=== PATIENT | female | born 1955 | race Caucasian/White ===

== ENCOUNTER 2016-07-12 11:06 | Emergency (ER) | payer MEDICAID, OTHER ==
[~2016-07-12] VITALS: Ht 162.6 cm; Wt 77.0 kg
[~2016-07-12 11:06] MED LIST: ASPI81TA3 PO; BENA40TA41 PO; GLIM2TAB PO; HYD25 PO; METF1000 PO; SMV40T PO
[2016-07-12 11:21] VITALS: Ht 162.6 cm; Wt 77.0 kg
[2016-07-12] MEDS ORDERED: IBUP-1542 PO (13:48)
[2016-07-12] MEDS ORDERED: OSLT75C PO (13:48)
[2016-07-12] MEDS ORDERED: BENZ100C70 PO (13:48)
[2016-07-12] MEDS ORDERED: IBUP400T22 PO (13:48)
--- NOTE | 2016-07-12 13:59 | ERD ---
ER Documentation Chief Complaint Date/Time DATE: 07/12/16 TIME: 13:56 Chief Complaint NAUSEA,HEADACHE,SORE THROAT HPI 60-year-old female with a past medical history of diabetes, hypertension, hyperlipidemia presents to the ED complaining of headache, sore throat, productive cough that started 3 days ago. Reports that she has been taking Tylenol without relief of her symptoms. Denies any sick contacts. Denies any chest pain, shortness of breath, wheezing, dysphagia, abdominal pain, nausea, vomiting, diarrhea. ROS All systems reviewed and are negative except as per history of present illness. Medications Home Meds Active Scripts Ibuprofen* (Motrin*) 400 Mg Tab, 400 MG PO Q6, #30 TAB take with food Prov:MARIAELENA JUNIOR PA-C 07/12/16 Benzonatate* (Tessalon Perle*) 100 Mg Capsule, 100 MG PO Q8H Y for COUGH, #20 CAP Prov:MARIAELENA JUNIOR PA-C 07/12/16 Oseltamivir Phosphate* (Tamiflu*) 75 Mg Capsule, 75 MG PO BID for 5 Days, CAP Prov:MARIAELENA JUNIOR PA-C 07/12/16 Reported Medications Aspirin* (Aspirin* Chew) 81 Mg Tab.chew, 81 MG PO DAILY, TAB.CHEW 03/02/14 Benazepril Hcl* (Benazepril Hcl*) 40 Mg Tablet, 40 MG PO DAILY, TAB 03/02/14 Glimepiride* (Glimepiride*) 2 Mg Tablet, 2 MG PO DAILY 01/16/13 Hydrochlorothiazide* (Hydrochlorothiazide*) 25 Mg Tab, 25 MG PO DAILY 01/16/13 Simvastatin (Simvastatin) 40 Mg Tablet, 40 MG PO QHS 01/16/13 Metformin Hcl* (Metformin Hcl*) 1,000 Mg Tablet, 1000 MG PO BID 01/16/13 Allergies Allergies: Coded Allergies: No Known Allergy (Unverified , 07/12/16) PMhx/Soc History of Surgery: Yes (C- SECTION) Anesthesia Reaction: No Hx Neurological Disorder: No Hx Respiratory Disorders: No Hx Psychiatric Problems: No Hx Miscellaneous Medical Probl: No Hx Alcohol Use: No Hx Substance Use: No Hx Tobacco Use: No Smoking Status: Never smoker Physical Exam Vitals Vital Signs Date Time Temp Pulse Resp B/P Pulse Ox O2 Delivery O2 Flow Rate FiO2 3/23/17 11:21 97.2 96 18 120/58 98 Physical Exam Const: [id number], well-nourished. In no acute distress. Head: Atraumatic, normocephalic Eyes: Normal Conjunctiva without injection. No purulent discharge. PERRL. EOMI ENT: Normal external ear. Ear canal without erythema. Tympanic membrane pearly raymundo without effusion or bulging. Nasal canal clear with normal turbinates. Moist oropharynx without tonsillar exudates. Non-erythematous pharynx. Uvula midline. No drooling. No trismus. Neck: Full range of motion. No meningismus. No cervical lymphadenopathy. Resp: Clear to auscultation bilaterally. No wheezing, rhonchi, rales, or crackles. No accessory muscle use. No retractions. Cardio: Regular rate and rhythm. No murmurs, rubs or gallops. Abd: Soft, non tender, non distended. Normal bowel sounds. No palpable masses. No rebound tenderness. No guarding. Skin: No petechiae or rashes Back: No midline tenderness. No CVA tenderness. Ext: No cyanosis, or edema. Neur: Awake and alert. Psych: Normal Mood and Affect Procedures/MDM This is a 60-year-old female with no significant past medical history presents to the ED complaining of sore throat, productive cough, fever. Patient is afebrile and nontoxic-appearing. Patient has normal vital signs. Patient symptoms are likely due to viral etiology. Since patient is a high risk patient , patient could benefit from a course of Tamiflu. Patient's physical exam include lungs which were clear to auscultation and a normal pulse oximetry. There is a low suspicion for pneumonia, pneumothorax, pulmonary embolism, epiglottitis, otitis media, otitis externa, viral/strep pharyngitis, sinusitis, peritonsillar abscess, mastoiditis, retropharyngeal abscess, meningitis, sepsis , acute abdomen or other emergent conditions. Fluids, rest, and symptomatic treatment are recommended for the management of patient's symptoms. Discharge medications: Tessalon Perles, Tamiflu, Ibuprofen Patient was instructed to return to the ED for any new or worsening symptoms. They should otherwise follow up with the primary care provider within 1-2 days. The patient's questions were answered at the time of discharge. Patient understood and agreed with discharge management. Departure Diagnosis: Primary Impression: Flu-like symptoms Condition: Stable Patient Instructions: Influenza (Adult) Referrals: [facility] YOU HAVE RECEIVED A MEDICAL SCREENING EXAM AND THE RESULTS INDICATE THAT YOU DO NOT HAVE A CONDITION THAT REQUIRES URGENT TREATMENT IN THE EMERGENCY DEPARTMENT. FURTHER EVALUATION AND TREATMENT OF YOUR CONDITION CAN WAIT UNTIL YOU ARE SEEN IN YOUR DOCTORS OFFICE WITHIN THE NEXT 1-2 DAYS. IT IS YOUR RESPONSIBILITY TO MAKE AN APPOINTMENT FOR FOLOW-UP CARE. IF YOU HAVE A PRIMARY DOCTOR --you should call your primary doctor and schedule an appointment IF YOU DO NOT HAVE A PRIMARY DOCTOR YOU CAN CALL OUR PHYSICIAN REFERRAL HOTLINE AT IF YOU CAN NOT AFFORD TO SEE A PHYSICIAN YOU CAN CHOSE FROM THE FOLLOWING [facility] [address] [facility]. [facility] [address] [facility] [address] [facility] [address] [facility]. [facility] [address] [facility]. [facility] [address] [facility]. [facility] YOU HAVE RECEIVED A MEDICAL SCREENING EXAM AND THE RESULTS INDICATE THAT YOU DO NOT HAVE A CONDITION THAT REQUIRES URGENT TREATMENT IN THE EMERGENCY DEPARTMENT. FURTHER EVALUATION AND TREATMENT OF YOUR CONDITION CAN WAIT UNTIL YOU ARE SEEN IN YOUR DOCTORS OFFICE WITHIN THE NEXT 1-2 DAYS. IT IS YOUR RESPONSIBILITY TO MAKE AN APPOINTMENT FOR FOLOW-UP CARE. IF YOU HAVE A PRIMARY DOCTOR --you should call your primary doctor and schedule and appointment IF YOU DO NOT HAVE A PRIMARY DOCTOR YOU CAN CALL OUR PHYSICIAN REFERRAL HOTLINE AT . IF YOU CAN NOT AFFORD TO SEE A PHYSICIAN YOU CAN CHOSE FROM THE FOLLOWING [facility] INSTITUTIONS: [facility] [address] [place] [address] [facility] [address] [place] [address] [facility] + [facility] [address] [place] [address] [facility] URGENT CARE/SPECIALTIES Additional Instructions: Llame al doctor MAANA y kathe sue MARIA G PARA DENTRO DE 1-2 CONNOR.Dgale a la secretaria que nosotros le instruimos hacer esta maria g.Avise o llame si lewis condicin se empeora antes de la maria g. Regresa aqui si peor o no mejor. MARIAELENA JUNIOR PA-C Jul 12, 2016 13:59
== END 2016-07-12 14:40 | disposition home or self-care (01) ==
LOC: FTE 11:06
DX: R51 Headache (principal); J02.9 Acute pharyngitis, unspecified; R05 Cough; R11.0 Nausea; I10 Essential (primary) hypertension; E11.9 Type 2 diabetes mellitus without complications; Z79.82 Long term (current) use of aspirin; Z79.84 Long term (current) use of oral hypoglycemic drugs
CPT/HCPCS: 99284

== ENCOUNTER 2016-09-10 05:25 | Emergency (ER) | payer OTHER ==
[~2016-09-10] VITALS: Ht 165.1 cm; Wt 75.0 kg
[~2016-09-10 05:25] MED LIST changes: +BENZ100C70 PO; +IBUP400T22 PO; +OSLT75C PO
[2016-09-10 05:28] VITALS: Ht 165.1 cm; Wt 75.0 kg
[2016-09-10] MEDS ORDERED: LIDOCAINE 1% (MDV) 20 ML INJ INJ STA (06:20)
[2016-09-10] MEDS ORDERED: CEPH-443 PO (06:27)
[2016-09-10] MEDS ORDERED: SULF1TAB31 PO (06:27)
[2016-09-10] MEDS ORDERED: IBUP-1542 PO (06:27)
--- NOTE | 2016-09-10 07:13 | ERD ---
ER Documentation Chief Complaint Date/Time DATE: 09/10/16 TIME: 07:11 Chief Complaint Abscess in the right leg x4 days HPI 60-year-old female with history of type 2 diabetes comes to the emergency department with an abscess on her right upper leg for the past 4 days. Patient states that it is achy, pain is worse with movement and is localized. She has no other infections. She denies any fevers or chills or trauma. ROS All systems reviewed and are negative except as per history of present illness. Medications Home Meds Active Scripts Ibuprofen* (Motrin*) 600 Mg Tab, 600 MG PO Q6, #30 TAB Prov:ZAKIA HUNTER PA-C 09/10/16 Sulfamethoxazole/Trimethoprim* (Bactrim Ds* Tablet) 1 Each Tablet, 1 TAB PO BID , #14 TAB Prov:ZAKIA HUNTER PA-C 09/10/16 Cephalexin* (Keflex*) 500 Mg Capsule, 500 MG PO QID for 7 Days, CAP Prov:ZAKIA HUNTER PA-C 09/10/16 Ibuprofen* (Motrin*) 400 Mg Tab, 400 MG PO Q6, #30 TAB take with food Prov:MARIAELENA JUNIOR PA-C 07/12/16 Benzonatate* (Tessalon Perle*) 100 Mg Capsule, 100 MG PO Q8H Y for COUGH, #20 CAP Prov:MARIAELENA JUNIOR PA-C 07/12/16 Oseltamivir Phosphate* (Tamiflu*) 75 Mg Capsule, 75 MG PO BID for 5 Days, CAP Prov:MARIAELENA JUNIOR PA-C 07/12/16 Reported Medications Aspirin* (Aspirin* Chew) 81 Mg Tab.chew, 81 MG PO DAILY, TAB.CHEW 03/02/14 Benazepril Hcl* (Benazepril Hcl*) 40 Mg Tablet, 40 MG PO DAILY, TAB 03/02/14 Glimepiride* (Glimepiride*) 2 Mg Tablet, 2 MG PO DAILY 01/16/13 Hydrochlorothiazide* (Hydrochlorothiazide*) 25 Mg Tab, 25 MG PO DAILY 01/16/13 Simvastatin (Simvastatin) 40 Mg Tablet, 40 MG PO QHS 01/16/13 Metformin Hcl* (Metformin Hcl*) 1,000 Mg Tablet, 1000 MG PO BID 01/16/13 Allergies Allergies: Coded Allergies: No Known Allergy (Unverified , 07/12/16) PMhx/Soc History of Surgery: Yes (C- SECTION) Anesthesia Reaction: No Hx Neurological Disorder: No Hx Respiratory Disorders: No Hx Psychiatric Problems: No Hx Miscellaneous Medical Probl: No Hx Alcohol Use: No Hx Substance Use: No Hx Tobacco Use: No Physical Exam Vitals Vital Signs Date Time Temp Pulse Resp B/P Pulse Ox O2 Delivery O2 Flow Rate FiO2 09/10/16 05:28 98.3 94 20 166/78 98 Physical Exam General: Well-developed, well-nourished. The patient appears in no acute distress. HEENT: Head is normocephalic, atraumatic. No scleral icterus. Neck: Supple. Nontender. Lungs: Clear to auscultation. Normal air movement. Heart: Regular rate and rhythm. S1 and S2 are normal. No murmurs, gallops, or rubs. Abdomen: Nondistended. Extremities: No clubbing or cyanosis. Moving extremities x 4. No weakness. Neurologic: Alert and oriented 3. No focal deficits. Normal speech and gait. Skin: Right upper leg has a 5 cm area of induration with erythema, the central aspect is fluctuant. Results 24 hrs Current Medications Medications (Trade) Dose Ordered Sig/Briana Route PRN Reason Start Time Stop Time Status Last Admin Dose Admin Lidocaine (Xylocaine 1% (Mdv) 20 ml) 20 ml ONCE STAT INJ 09/10/16 06:20 09/10/16 06:22 DC Procedures/MDM Abscess Incision and Drainage with irrigation by me: Patient was verbally consented Location: Right thigh Anesthesia: Local 1% Lidocaine Technique: Irrigated. Disrupted loculations w/ instrumentation Packing: None Complications: Neurovascularly intact post procedure 48 hour wound check. Scar minimization instructions given. Patient's skin symptoms have stabilized while they have been evaluated in the department and are appropriate for outpatient care and work up. Exam and w/u not consistent w/ sepsis, deep space infection, or foreign body. MDM: 60-year-old female comes in with an abscess on the right upper leg, incision and drainage was under some purulent drainage was able to be removed, there were no complications and appears to be simple abscess. I do not see evidence of deep space infection, limb threatening process or signs of DVT. She was also do warm compresses continue at home, oral antibiotics and recheck the wound in 2 days. Patient's blood pressure was elevated (>120/80) but appears stable without evidence of hypertension emergency or urgency. The patient was counseled about the risks of hypertension and urged to pursue outpatient monitoring and therapy within a week with their primary care physician. Departure Diagnosis: Primary Impression: Abscess Additional Impression: Encounter for incision and drainage procedure Condition: Good Patient Instructions: Abscess, Incision And Drainage Additional Instructions: WOUND CHECK:CONSULTE A URBANO ICO EN 2 carreon para jud URBANO HERIDA. ZAKIA HUNTER PA-C September 10, 2016 07:13
== END 2016-09-10 07:15 | disposition home or self-care (01) ==
LOC: FTE 05:25
DX: L02.415 Cutaneous abscess of right lower limb (principal); E11.9 Type 2 diabetes mellitus without complications; Z79.82 Long term (current) use of aspirin; Z79.84 Long term (current) use of oral hypoglycemic drugs
CPT/HCPCS: 10061; Z7502; Z7610

== ENCOUNTER 2016-09-12 05:28 | Emergency (ER) | payer OTHER ==
[~2016-09-12] VITALS: Ht 162.6 cm; Wt 75.0 kg
[~2016-09-12 05:28] MED LIST changes: +CEPH-443 PO; +IBUP-1542 PO; +SULF1TAB31 PO
[2016-09-12 05:34] VITALS: Ht 162.6 cm; Wt 75.0 kg
--- NOTE | 2016-09-12 06:23 | ERD ---
ER Documentation Chief Complaint Date/Time DATE: 09/12/16 TIME: 06:20 Chief Complaint wound check right groin HPI 60 yo female comes in with a wound check from an abscess on the right upper thigh that had an incision and drainage procedure 2 days ago. Patient states that the pain has gotten better, there is no drainage or fevers or chills. She reports that the swelling has gone down. ROS All systems reviewed and are negative except as per history of present illness. Medications Home Meds Active Scripts Ibuprofen* (Motrin*) 600 Mg Tab, 600 MG PO Q6, #30 TAB Prov:ZAKIA HUNTER PA-C 09/10/16 Sulfamethoxazole/Trimethoprim* (Bactrim Ds* Tablet) 1 Each Tablet, 1 TAB PO BID , #14 TAB Prov:ZAKIA HUNTER PA-C 09/10/16 Cephalexin* (Keflex*) 500 Mg Capsule, 500 MG PO QID for 7 Days, CAP Prov:ZAKIA HUNTER PA-C 09/10/16 Ibuprofen* (Motrin*) 400 Mg Tab, 400 MG PO Q6, #30 TAB take with food Prov:MARIAELENA JUNIOR PA-C 07/12/16 Benzonatate* (Tessalon Perle*) 100 Mg Capsule, 100 MG PO Q8H Y for COUGH, #20 CAP Prov:MARIAELENA JUNIOR PA-C 07/12/16 Oseltamivir Phosphate* (Tamiflu*) 75 Mg Capsule, 75 MG PO BID for 5 Days, CAP Prov:MARIAELENA JUNIOR PA-C 07/12/16 Reported Medications Aspirin* (Aspirin* Chew) 81 Mg Tab.chew, 81 MG PO DAILY, TAB.CHEW 03/02/14 Benazepril Hcl* (Benazepril Hcl*) 40 Mg Tablet, 40 MG PO DAILY, TAB 03/02/14 Glimepiride* (Glimepiride*) 2 Mg Tablet, 2 MG PO DAILY 01/16/13 Hydrochlorothiazide* (Hydrochlorothiazide*) 25 Mg Tab, 25 MG PO DAILY 01/16/13 Simvastatin (Simvastatin) 40 Mg Tablet, 40 MG PO QHS 01/16/13 Metformin Hcl* (Metformin Hcl*) 1,000 Mg Tablet, 1000 MG PO BID 01/16/13 Allergies Allergies: Coded Allergies: No Known Allergy (Unverified , 07/12/16) PMhx/Soc History of Surgery: Yes (C- SECTION) Anesthesia Reaction: No Hx Neurological Disorder: No Hx Respiratory Disorders: No Hx Cardiac Disorders: Yes (HIGH CHOLESTEROL, HTN) Hx Psychiatric Problems: No Hx Miscellaneous Medical Probl: No Hx Alcohol Use: No Hx Substance Use: No Hx Tobacco Use: No Smoking Status: Never smoker Physical Exam Vitals Vital Signs Date Time Temp Pulse Resp B/P Pulse Ox O2 Delivery O2 Flow Rate FiO2 09/12/16 05:34 97.8 90 20 164/80 98 Physical Exam General: Well-developed, well-nourished. The patient appears in no acute distress. HEENT: Head is normocephalic, atraumatic. No scleral icterus. Neck: Supple. Nontender. Lungs: Clear to auscultation. Normal air movement. Heart: Regular rate and rhythm. S1 and S2 are normal. No murmurs, gallops, or rubs. Abdomen: Nondistended. Extremities: No clubbing or cyanosis. Moving extremities x 4. No weakness. Neurologic: Alert and oriented 3. No focal deficits. Normal speech and gait. Skin: 3.5 cm area of erythema, there is mild induration, there is a small amount of pus that was able to be drained on examination. There is no continuing fluctuance, no lymphatic streaking. Procedures/MDM 60-year-old female comes in for wound check from an abscess incision and drainage from 2 days ago. Incision site is clean at this time there is some small amount of remaining purulent drainage that was able to be removed with gentle pressure. The surrounding cellulitis does seem to be smaller than the previous visit. Patient will be asked to continue antibiotics, she was also asked to apply warm compresses at home. Patient appropriate for outpatient follow up. Departure Diagnosis: Primary Impression: Encounter for wound re-check Condition: Good Patient Instructions: Abscess, Incision And Drainage ZAKIA HUNTER PA-C September 12, 2016 06:23
== END 2016-09-12 06:39 | disposition home or self-care (01) ==
LOC: FTE 05:28
DX: Z48.01 Encounter for change or removal of surgical wound dressing (principal); I10 Essential (primary) hypertension; Z79.82 Long term (current) use of aspirin
CPT/HCPCS: 99281

== ENCOUNTER 2016-10-19 17:50 | Inpatient (IN) | payer OTHER ==
[~2016-10-19] VITALS: Ht 165.1 cm; Wt 78.5 kg
[~2016-10-19 17:50] MED LIST changes: +SIMV40TA3 PO; -SMV40T PO
[2016-10-19] MEDS ORDERED: ACETAMINOPHEN 325 MG TAB PO ONE (18:30)
[2016-10-19] MEDS ORDERED: SOD CHLORIDE 0.9% 1,000 ML IV ONE (18:30)
[2016-10-19] MEDS ORDERED: CLINDAMYCIN 900 MG/D5W (PMX) 50 ML IVPB SCH (18:30)
--- NOTE | 2016-10-19 18:45 | ERD ---
ER Documentation Chief Complaint Date/Time DATE: 10/19/16 TIME: 18:38 Chief Complaint LEFT 2ND TOE DISCOLORATION, SENT PER PMD FOR EVAL, HX OF DM, DENIES PAIN HPI This Hungarian-speaking 60-year-old diabetic female presents to emergency department with 1 month history of a toe infection. Patient states that she went to her routine clinic for evaluation of her diabetes was sent to emergency department for evaluation and treatment. Patient denies any numbness or tingling to foot. Patient denies any pain at ulcer site. States blood glucose is treated, stable, and usually 180. Patient has past medical history including hypertension hyperlipidemia. Has been a diabetic for 20+ years. Patient denies difficulty ambulating, has been brought in by her grandson who is available for translation. Patient is afebrile, denies nausea or vomiting, denies chest pain, shortness of breath, palpitations or dizziness. ROS All systems reviewed and are negative except as per history of present illness. Medications Home Meds Reported Medications Atorvastatin* (Atorvastatin*) 40 Mg Tablet, 40 MG PO QHS, #30 TAB 10/19/16 Metformin Hcl* (Metformin Hcl*) 1,000 Mg Tablet, 1000 MG PO WITH BREAKFAST DINNE , #60 TAB 10/19/16 Hydrochlorothiazide* (Hydrochlorothiazide*) 25 Mg Tab, 25 MG PO DAILY, #30 TAB 10/19/16 Glimepiride* (Glimepiride*) 4 Mg Tablet, 4 MG PO WITH BREAKFAST DINNE, TAB 10/19/16 Benazepril Hcl* (Benazepril Hcl*) 40 Mg Tablet, 40 MG PO DAILY, #30 TAB 10/19/16 Discontinued Reported Medications Aspirin* (Aspirin* Chew) 81 Mg Tab.chew, 81 MG PO DAILY, TAB.CHEW 03/02/14 Benazepril Hcl* (Benazepril Hcl*) 40 Mg Tablet, 40 MG PO DAILY, TAB 03/02/14 Glimepiride* (Glimepiride*) 2 Mg Tablet, 2 MG PO DAILY 01/16/13 Hydrochlorothiazide* (Hydrochlorothiazide*) 25 Mg Tab, 25 MG PO DAILY 01/16/13 Simvastatin (Simvastatin) 40 Mg Tablet, 40 MG PO QHS 01/16/13 Metformin Hcl* (Metformin Hcl*) 1,000 Mg Tablet, 1000 MG PO BID 01/16/13 Discontinued Scripts Ibuprofen* (Motrin*) 600 Mg Tab, 600 MG PO Q6, #30 TAB Prov:ZAKIA HUNTER PA-C 09/10/16 Sulfamethoxazole/Trimethoprim* (Bactrim Ds* Tablet) 1 Each Tablet, 1 TAB PO BID , #14 TAB Prov:ZAKIA HUNTER PA-C 09/10/16 Cephalexin* (Keflex*) 500 Mg Capsule, 500 MG PO QID for 7 Days, CAP Prov:ZAKIA HUNTER PA-C 09/10/16 Ibuprofen* (Motrin*) 400 Mg Tab, 400 MG PO Q6, #30 TAB take with food Prov:MARIAELENA JUNIOR PA-C 07/12/16 Benzonatate* (Tessalon Perle*) 100 Mg Capsule, 100 MG PO Q8H Y for COUGH, #20 CAP Prov:MARIAELENA JUNIOR PA-C 07/12/16 Oseltamivir Phosphate* (Tamiflu*) 75 Mg Capsule, 75 MG PO BID for 5 Days, CAP Prov:MARIAELENA JUNIOR PA-C 07/12/16 Allergies Allergies: Coded Allergies: No Known Allergy (Unverified , 10/20/16) PMhx/Soc History of Surgery: Yes (C- SECTION) Anesthesia Reaction: No Hx Neurological Disorder: No Hx Respiratory Disorders: No Hx Cardiac Disorders: Yes (HIGH CHOLESTEROL, HTN) Hx Psychiatric Problems: No Hx Miscellaneous Medical Probl: Yes (DM ) Hx Alcohol Use: No Hx Substance Use: No Hx Tobacco Use: No Smoking Status: Never smoker Physical Exam Vitals Vital Signs Date Time Temp Pulse Resp B/P Pulse Ox O2 Delivery O2 Flow Rate FiO2 10/19/16 18:02 97.8 94 17 195/93 99 Vitals stable, triage notes reviewed, blood pressure is noted to be 195/93 patient reports feeling nervous but admits to taking blood pressure medication as prescribed Physical Exam Const: Well-nourished, well-appearing, no acute distress Head: Atraumatic Eyes: Normal Conjunctiva, PERRLA, EOMI ENT: Normal External Ears, Nose and Mouth. Mucous membranes moist, patient is missing teeth Neck: Full range of motion..~ No meningismus. Resp: Respirations even and unlabored, no respiratory distress Cardio: Regular rate and rhythm, no murmurs Abd: Back: No midline or flank tenderness Lower Extremity left foot, second toe Skin: Left foot second toe, hammertoe at DIP presents with white wet boggy foul-smelling ulcer at tip of DIP, toe is bulbous, patient has minimal sensation to touch. Compartments: Soft Motor: Full active range of motion hip/knee/ankle/foot Sensation: Altered sensation to light touch Bones: Nontender pelvis/knee/proximal tibia/ malleoli/foot Joints: No effusion or laxity Pulses/Perfusion: [1+ DP, Capillary refill < 2 seconds] Neur: Awake and alert Psych: Normal Mood and Affect Result Diagram: 10/20/16 0506 10/20/16 0506 Results 24 hrs Laboratory Tests Test 10/19/16 19:05 White Blood Count 8.910^3/ul Red Blood Count 4.2910^6/ul Hemoglobin 12.4g/dl Hematocrit 37.8% Mean Corpuscular Volume 88.1fl Mean Corpuscular Hemoglobin 28.9pg Mean Corpuscular Hemoglobin Concent 32.8g/dl Red Cell Distribution Width 13.3% Platelet Count 72724^3/UL Mean Platelet Volume 12.4fl Neutrophils % 69.9% Lymphocytes % 21.7% Monocytes % 6.7% Eosinophils % 1.1% Basophils % 0.2% Nucleated Red Blood Cells % 0.0/100WBC Neutrophils # 6.210^3/ul Lymphocytes # 1.910^3/ul Monocytes # 0.610^3/ul Eosinophils # 0.110^3/ul Basophils # 0.010^3/ul Nucleated Red Blood Cells # 0.010^3/ul Erythrocyte Sedimentation Rate 96mm/Hr Prothrombin Time 13.1Sec Prothrombin Time Ratio 1.0 INR International Normalized Ratio 0.99 Activated Partial Thromboplast Time 28.8Sec Sodium Level 131mmol/L Potassium Level 3.9mmol/L Chloride Level 92mmol/L Carbon Dioxide Level 29mmol/L Anion Gap 14 Blood Urea Nitrogen 29mg/dl Creatinine 1.11mg/dl Glucose Level 322mg/dl Calcium Level 9.8mg/dl Total Bilirubin 0.4mg/dl Direct Bilirubin 0.00mg/dl Indirect Bilirubin 0.4mg/dl Aspartate Amino Transf (AST/SGOT) 31IU/L Alanine Aminotransferase (ALT/SGPT) 48IU/L Alkaline Phosphatase 225IU/L C-Reactive Protein 3.7mg/dl Total Protein 8.7g/dl Albumin 4.9g/dl Globulin 3.80g/dl Albumin/Globulin Ratio 1.28 Current Medications Medications (Trade) Dose Ordered Sig/Briana Route PRN Reason Start Time Stop Time Status Last Admin Dose Admin Acetaminophen 650 mg 650 mg ONCE ONCE PO 10/19/16 18:30 10/19/16 18:35 DC 10/19/16 19:20 Sodium Chloride 1,000 ml @ 1,000 mls/hr Q1H ONCE IV 10/19/16 18:30 10/19/16 19:29 DC 10/19/16 19:21 Clindamycin HCl/ Dextrose 50 ml @ 50 mls/hr ONCE IVPB 10/19/16 18:30 10/19/16 19:29 DC 10/19/16 19:21 Piperacillin Sod/ Tazobactam Sod 100 ml @ 200 mls/hr ONCE ONCE IVPB 10/19/16 19:00 10/19/16 19:29 DC 10/19/16 20:18 Sodium Chloride (NS) 1,000 ml @ 80 mls/hr [id number] IV 10/19/16 20:52 10/20/16 09:21 DC 10/19/16 23:16 Ondansetron HCl (Zofran Inj) 4 mg BRIDGE ORDER PRN IV NAUSEA AND/OR VOMITING 10/19/16 21:00 10/20/16 01:36 DC 10/20/16 00:11 Acetaminophen (Tylenol Tab) 650 mg ER BRIDGE PRN PO MILD PAIN/FEVER 10/19/16 21:00 10/20/16 01:36 DC Vancomycin HCl (Vanco Iv Per Pharmacy) VANCOMYCIN PER PHARMACY PER PROTOCOL XX 10/19/16 21:30 IV Flush (NS 3 ml) 3 ml PER PROTOCOL IV 10/19/16 21:30 10/19/16 21:45 DC Ondansetron HCl (Zofran Inj) 4 mg Q6H PRN IV NAUSEA AND/OR VOMITING 10/19/16 21:30 10/20/16 01:36 DC Acetaminophen (Tylenol Tab) 650 mg Q6H PRN PO PAIN LEVEL 1-3 OR FEVER 10/19/16 21:30 10/20/16 01:36 DC Morphine Sulfate (morphine) 2 mg Q4H PRN IV SEVERE PAIN LEVEL 7-10 10/19/16 21:30 10/20/16 01:35 DC 10/20/16 00:11 Miscellaneous Information (* Miscellaneous Pharmacy Order) HYPOGLYCEMIA PROTOCOL w... ONCE ONCE XX 10/19/16 21:30 10/19/16 21:42 DC Miscellaneous Information (* Miscellaneous Pharmacy Order) Discontinue Glyburide, Glipizide,... ONCE ONCE XX 10/19/16 21:30 10/19/16 21:42 DC Miscellaneous Information (* Miscellaneous Pharmacy Order) Discontinue all previ... ONCE ONCE XX 10/19/16 21:30 10/19/16 21:43 DC IV Flush (NS 3 ml) 3 ml PER PROTOCOL IV 10/19/16 21:30 Interpretation text CBC shows no evidence of hemorrhage or infection Chemistry shows no evidence of significant electrolyte abnormalities or renal insufficiency Liver function tests shows no evidence of acute biliary or hepatic dysfunction Coagulation study showed no concerning coagulpathy . Procedures/MDM ROCEDURE: XR LEFT FOOT. CLINICAL INDICATION: Hammertoe, ulceration, osteomyelitis. 3rd digit infection. TECHNIQUE: Three views of the left foot were obtained. COMPARISON: No prior studies are available for comparison. FINDINGS: The bones are diffusely osteoporotic. No bone destructive change of the third toe phalanges identified. There is post-traumatic post fracture deformity of the distal aspect of the third and fourth metatarsals. There is also arthrosis of the second metatarsal phalangeal joint, possibly post-traumatic and there is post-traumatic deformity of the base of the second metatarsal. Marked degenerative changes of Lisfranc's articulation are present and the could be early Charcot changes medially. There is marked pes planus deformity. No acute fracture is identified. No radiopaque foreign body is seen. There is a large plantar calcaneal spur.. IMPRESSION: 1. No bone destructive changes of the third digit to suggest osteomyelitis identified. 2. Post-traumatic changes of the forefoot. No acute fractures seen. 3. Lisfranc articulation arthrosis. Findings could represent early Charcot changes medially. 4. Pes planus. 5. Osteoporosis. Electronically viewed and signed by .Arturo Adkins MD, MD on 10/19/2016 19: 20 Dr. Adkins called by myself to clarify order. Patient has a oozing wet odiferous ulcer on second toe. Physician clarifies that second metatarsal has degenerative changes possible traumatic changes with the possibility of osteo- myelitis in the terminal tuft. Suggest CT scan for verification. Physician states he will update and make an amendment to above report. Patient receives 1 L of normal saline, clindamycin and Zosyn patient denies complaints of pain, vitals stable. Case discussed with supervising physician Dr. Campos Patient will be admitted for hospital care of osteomyelitis. All care turned over to Dr Campos at this time. Departure Diagnosis: Primary Impression: Osteomyelitis Osteomyelitis type: unspecified type Osteomyelitis location: foot Laterality: left Qualified Code: M86.9 - Osteomyelitis of left foot, unspecified type OG BAJWA Oct 19, 2016 18:45
[2016-10-19] MEDS ORDERED: PIPER-TAZO 3.375 GM IV (PMX) 100 ML IVPB ONE (19:00)
--- NOTE | 2016-10-19 19:20 | RADRPT ---
AMENDMENT: 10/19/2016 7:58:39 PM Arturo Adkins M.D Nurse practitioner Bing discussed the case with me. The annotation on the images was incorrect a nd concern was not of the third digit but of the second digit. There is soft tissue swelling of the second digit. There is subtle irregularity of the terminal tuft of the distal phalanx of the secon d digit. In association with the clinical appearance of soft tissue swelling and foul oder, the fin dings could represent an infected second toe and early changes of osteomyelitis. MRI would be confi rmatory of distal phalangeal osteomyelitis. PROCEDURE: XR LEFT FOOT. CLINICAL INDICATION: Hammertoe, ulceration, osteomyelitis. 3rd digit infection. TECHNIQUE: Three views of the left foot were obtained. COMPARISON: No prior studies are available for comparison. FINDINGS: The bones are diffusely osteoporotic. No bone destructive change of the third toe phalanges identif ied. There is post-traumatic post fracture deformity of the distal aspect of the third and fourth m etatarsals. There is also arthrosis of the second metatarsal phalangeal joint, possibly post-trauma tic and there is post-traumatic deformity of the base of the second metatarsal. Marked degenerative changes of Lisfranc's articulation are present and the could be early Charcot changes medially. Th ere is marked pes planus deformity. No acute fracture is identified. No radiopaque foreign body is seen. There is a large plantar calcaneal spur.. IMPRESSION: 1. No bone destructive changes of the third digit to suggest osteomyelitis identified. 2. Post-traumatic changes of the forefoot. No acute fractures seen. 3. Lisfranc articulation arthrosis. Findings could represent early Charcot changes medially. 4. Pes planus. 5. Osteoporosis. RPTAT: XX .Arturo Adkins MD, MD Date Time Electronically viewed and signed by .Arturo Adkins MD, on 10/19/2016 19:58 .T/
[2016-10-19 19:22] LABS: BASOPHILS % 0.2 % (0.0-2.0); EOSINOPHILS # 0.1 10^3/ul (0.0-0.5); EOSINOPHILS % 1.1 % (0.0-7.0); HEMATOCRIT 37.8 % (37.0-47.0); HEMOGLOBIN 12.4 g/dl (12.0-16.0); LYMPHOCYTES # 1.9 10^3/ul (0.8-2.9); LYMPHOCYTES % 21.7 % (15.0-51.0); MEAN CORPUSCULAR HEMOGLOBIN 28.9 pg (29.0-33.0); MEAN CORPUSCULAR HGB CONC 32.8 g/dl (32.0-37.0); MEAN CORPUSCULAR VOLUME 88.1 fl (82.0-101.0); MEAN PLATELET VOLUME 12.4 fl (7.4-10.4); MONOCYTE # 0.6 10^3/ul (0.3-0.9); MONOCYTES % 6.7 % (0.0-11.0); NEUTROPHIL # 6.2 10^3/ul (1.6-7.5); NEUTROPHILS % 69.9 % (39.0-77.0); PLATELET COUNT 278 10^3/UL (140-415); RED BLOOD COUNT 4.29 10^6/ul (4.20-5.40); RED CELL DISTRIBUTION WIDTH 13.3 % (11.5-14.5); WHITE BLOOD COUNT 8.9 10^3/ul (4.8-10.8)
[2016-10-19 19:45] LABS: INR 0.99; PARTIAL THROMBOPLASTIN TIME 28.8 Sec (25.0-35.0); PROTIME 13.1 Sec (12.2-14.2)
[2016-10-19 19:56] LABS: ALBUMIN 4.9 g/dl (3.3-4.9); ALBUMIN/GLOBULIN RATIO 1.28; BILIRUBIN,INDIRECT 0.4 mg/dl (0-1.1); BILIRUBIN,TOTAL 0.4 mg/dl (0.2-1.3); CALCIUM 9.8 mg/dl (8.4-10.2); CREATININE 1.11 mg/dl (0.44-1.00); POTASSIUM 3.9 mmol/L (3.5-5.1); TOTAL PROTEIN 8.7 g/dl (6.1-8.1)
[2016-10-19] MEDS ORDERED: SOD CHLORIDE 0.9% 1,000 ML IV SCH (20:52)
[2016-10-19] MEDS ORDERED: ONDANSETRON 4 MG INJ IV PRN ×2 (21:00→21:30)
[2016-10-19] MEDS ORDERED: ACETAMINOPHEN 325 MG TAB PO PRN ×2 (21:00→21:30)
[2016-10-19] MEDS ORDERED: BENA40TA41 PO (21:24)
[2016-10-19] MEDS ORDERED: HYD25 PO (21:25)
[2016-10-19] MEDS ORDERED: GLIM4TAB PO (21:25)
[2016-10-19] MEDS ORDERED: METF1000 PO (21:26)
[2016-10-19] MEDS ORDERED: ATOR40TA68 PO (21:26)
[2016-10-19] MEDS ORDERED: HYPOGLYCEMIA PROTOCOL when Glucose is <70 mg/dL or symptomatic <90 mg/dL. XX ONE (21:30)
[2016-10-19] MEDS ORDERED: NACL 0.9% 3 ML SYG IV SCH ×2 (21:30)
[2016-10-19] MEDS ORDERED: Discontinue Glyburide, Glipizide, and/or Glimepiride prior to starting Insulin XX ONE (21:30)
[2016-10-19] MEDS ORDERED: VANCOMYCIN IV PER PHARMACY XX SCH (21:30)
[2016-10-19] MEDS ORDERED: morphine 2 MG INJ IV PRN (21:30)
[2016-10-19] MEDS ORDERED: GLUCAGON 1 MG INJ IM PRN (22:00)
[2016-10-19] MEDS ORDERED: GLUCOSE GEL 15 GRAM TUBE BUCCAL PRN (22:00)
[2016-10-19] MEDS ORDERED: GLUCOSE GEL 15 GRAM TUBE PO PRN ×2 (22:00)
[2016-10-19] MEDS ORDERED: DEXTROSE 50% 50 ML SYRINGE IV PRN ×2 (22:00)
[2016-10-19] MEDS ORDERED: VANCOMYCIN 1.5 GM in SOD CHLORIDE 0.9% 250 ML IVPB SCH (22:05)
[2016-10-19] MEDS: HEPARIN 5,000 UNIT/0.5 ML VIAL SC SCH (23:15)
--- NOTE | 2016-10-19 23:32 | RADRPT ---
PROCEDURE: MR Foot. CLINICAL INDICATION: Left foot infection. Osteomyelitis of the second digit of the left foot. TECHNIQUE: Noncontrast MRI of the left forefoot, with axial, sagittal and coronal reformatted imag es. T1-weighted and STIR sequences were employed. COMPARISON: Left foot plain film series dated today, about 3 hours ago. FINDINGS: Soft tissue defect is seen at the tip of the left toe, and there is decreased T1 signal seen in the tuft of the distal phalanx of the left second toe, compatible with osteomyelitis. There is an old fracture deformity at the base of the second proximal phalanx, with plantar subluxat ion of the base of the second proximal phalanx over the plantar aspect of the head of the second met atarsal, with osteophyte at the head of the second metatarsal. Old healed fractures of the proximal to mid first metatarsal, and the distal third and fourth metatarsals. No acute fracture, dislocation or marrow replacement process otherwise identified. Increased fluid signal in the interosseous muscles of the left forefoot compatible with early neuropathic changes. Partially visualized erosive changes at the tarsometatarsal joints, which may represent sequela of e cheng neuropathic changes IMPRESSION: Osteomyelitis of the distal phalanx of the second toe of the left foot. RPTAT: [facility] Date Time Electronically viewed and signed by [employer] on 10/19/2016 23:31 RS/
[2016-10-19 23:44] VITALS: TEMP 97.8
[2016-10-20 00:21] VITALS: BP 163/75; PULSE 74; RESP 18
[2016-10-20 00:50] VITALS: Ht 165.1 cm; Wt 78.5 kg
[2016-10-20] MEDS ORDERED: morphine 2 MG INJ IV PRN (01:30)
[2016-10-20] MEDS ORDERED: VANCOMYCIN IV PER PHARMACY XX SCH (01:30)
[2016-10-20] MEDS ORDERED: ACETAMINOPHEN 325 MG TAB PO PRN (01:30)
[2016-10-20] MEDS ORDERED: ONDANSETRON 4 MG INJ IV PRN (01:30)
[2016-10-20] MEDS: INSULIN GLARGINE [LANtus] 3 ML PEN SC SCH ×2 (01:34→21:23)
[2016-10-20] MEDS: INSULIN ASPART [NOVOLOG] 3 ML PEN SC SCH ×5 (01:36→21:21)
[2016-10-20] MEDS: ACCU-CHEK XX SCH (02:00)
[2016-10-20] MEDS ORDERED: ACCUCHECK AT 2AM (Patients on SS coverage) XX SCH (02:00)
[2016-10-20] MEDS ORDERED: ACCU-CHEK XX SCH (02:00)
[2016-10-20 03:00] VITALS: BP 158/74; PULSE 82
[2016-10-20] MEDS ORDERED: HEPARIN 5,000 UNIT/0.5 ML VIAL SC SCH (06:00)
[2016-10-20] MEDS: HEPARIN 5,000 UNIT/0.5 ML VIAL SC SCH ×3 (06:00→21:28)
[2016-10-20] MEDS ORDERED: PANTOPRAZOLE 40 MG INJ IV SCH (06:00)
[2016-10-20 06:08] LABS: BASOPHILS % 0.3 % (0.0-2.0); EOSINOPHILS # 0.2 10^3/ul (0.0-0.5); HEMATOCRIT 33.5 % (37.0-47.0); HEMOGLOBIN 10.6 g/dl (12.0-16.0); LYMPHOCYTES # 2.4 10^3/ul (0.8-2.9); LYMPHOCYTES % 32.7 % (15.0-51.0); MEAN CORPUSCULAR HGB CONC 31.6 g/dl (32.0-37.0); MEAN CORPUSCULAR VOLUME 88.6 fl (82.0-101.0); MEAN PLATELET VOLUME 12.5 fl (7.4-10.4); MONOCYTE # 0.6 10^3/ul (0.3-0.9); MONOCYTES % 8.6 % (0.0-11.0); NEUTROPHIL # 4.1 10^3/ul (1.6-7.5); NEUTROPHILS % 56.3 % (39.0-77.0); PLATELET COUNT 247 10^3/UL (140-415); RED BLOOD COUNT 3.78 10^6/ul (4.20-5.40); RED CELL DISTRIBUTION WIDTH 13.3 % (11.5-14.5); WHITE BLOOD COUNT 7.3 10^3/ul (4.8-10.8)
[2016-10-20 06:31] LABS: ALBUMIN 3.9 g/dl (3.3-4.9); ALBUMIN/GLOBULIN RATIO 1.25; BILIRUBIN,INDIRECT 0.5 mg/dl (0-1.1); BILIRUBIN,TOTAL 0.5 mg/dl (0.2-1.3); CALCIUM 9.2 mg/dl (8.4-10.2); CHOL/HDL RATIO 4.8 RATIO; CREATININE 0.76 mg/dl (0.44-1.00); MAGNESIUM 1.8 mg/dl (1.7-2.5); POTASSIUM 3.7 mmol/L (3.5-5.1)
[2016-10-20 07:01] LABS: THYROID STIMULATING HORMONE 1.31 MIU/L (0.465-4.680)
[2016-10-20] MEDS ORDERED: INSULIN ASPART [NOVOLOG] 3 ML PEN SC SCH (08:00)
[2016-10-20 08:14] VITALS: BP 165/71; RESP 18
[2016-10-20] MEDS: HYDROCHLOROTHIAZIDE 25 MG TAB PO SCH (08:21)
[2016-10-20] MEDS: BENAZEPRIL 40 MG TAB PO SCH (08:21)
[2016-10-20 10:00] VITALS: BP 144/66
[2016-10-20] MEDS: VANCOMYCIN 1 GM in NS 250 ML IVPB SCH ×2 (10:32→21:25)
--- NOTE | 2016-10-20 11:46 | HP ---
Date/Time of Note Date/Time of Note DATE: 10/20/16 TIME: 11:41 Assessment/Plan VTE Prophylaxis VTE Prophylaxis Intervention: ambulation Lines/Catheters IV [facility]from [facility] Saline Lock Urinary Cath still in place: No Assessment/Plan Chief Complaint/Hosp Course 1. distal phalanx osteomyelitis II toe left foot 2. DM type II uncontrolled 3. Hypertension, uncontrolled 4. Obesity Problems: Assessment/Plan 1. Better control DM, diabetic education 2. Continue a/b 3. Dr Gonzalez for podiatry consult HPI/ROS Admit Date/Time Admit Date/Time Oct 19, 2016 at 21:31 Hx of Present Illness 60 yo female was seen in ER with gait disturbance and infection of the II toe on the left foot. She was seen in clinic regarding infection and control DM type II for a month ROS Constitutional: no complaints Eyes: no complaints Cardiovascular: no complaints Gastrointestinal: no complaints Musculoskeletal: swelling (II toe left foot) Neurologic: no complaints Endocrine: no complaints PMH/Family/Social Past Medical History Medical History: diabetes, high cholesterol, hypertension Past Surgical History Past Surgical Hx: no surgical history Family History Significant Family History: diabetes Social History Alcohol Use: none Smoking Status: Never smoker Drug Use: none Exam/Review of Systems Vital Signs Vitals Vital Signs Date Time Temp Pulse Resp B/P Pulse Ox O2 Delivery O2 Flow Rate FiO2 10/20/16 10:00 144/66 10/20/16 08:14 98.0 78 18 97 10/20/16 00:21 Room Air Intake and Output 10/19/16 10/19/16 10/20/16 15:00 23:00 07:00 Intake Total 450 ml Balance 450 ml Exam Constitutional: alert, oriented, well developed Psych: no complaints Head: normocephalic Eyes: nl conjunctiva Respiratory: clear to auscultation Cardiovascular: regular rate and rhythm Gastrointestinal: soft Genitourinary - Female: nl external genitalia Musculoskeletal: swelling (II toe left foot) Neurological: REFERRAL MANAGEMENT LIAISON II-XII intact, nl mental status, nl speech, nl strength Skin: nl turgor Labs Result Diagram: 10/20/16 0506 10/20/16 0506 Medications Medications Current Medications Pantoprazole (Protonix Iv) 40 mg DAILY@06 IV Last administered on 10/20/16t 05: 56; Admin Dose 40 MG; Start 10/20/16 at 06:00 Heparin Sodium (Porcine) (Heparin (5000 Units/0.5 ml)) 5,000 unit Q8 SC Last administered on 10/19/16 23:15; Admin Dose 5,000 UNIT; Start 10/19/16 at 22:00 Atorvastatin Calcium (Lipitor) 40 mg QHS PO ; Start 10/20/16 at 21:00 Benazepril HCl (Lotensin) 40 mg DAILY PO Last administered on 10/20/16 08:21; Admin Dose 40 MG; Start 10/20/16 at 09:00 Hydrochlorothiazide (Hydrochlorothiazide) 25 mg DAILY PO Last administered on 08:21; Admin Dose 25 MG; Start 10/20/16 at 09:00 Miscellaneous Information 1 ea NOTE XX ; Start 10/19/16 at 22:00 Glucose (Glutose) 15 gm Q15M PRN PO DECREASED GLUCOSE; Start 10/19/16 at 22:00 Glucose (Glutose) 22.5 gm Q15M PRN PO DECREASED GLUCOSE; Start 10/19/16 at 22: 00 Dextrose (D50w Syringe) 25 ml Q15M PRN IV DECREASED GLUCOSE; Start 10/19/16 at 22:00 Dextrose (D50w Syringe) 50 ml Q15M PRN IV DECREASED GLUCOSE; Start 10/19/16 at 22:00 Glucagon (Glucagen) 1 mg Q15M PRN IM DECREASED GLUCOSE; Start 10/19/16 at 22:00 Glucose 15 gm 15 gm Q15M PRN BUCCAL DECREASED GLUCOSE; Start 10/19/16 at 22:00 Vancomycin HCl (Vancocin) 250 ml @ 125 mls/hr Q12H IVPB Last administered on 10:32; Admin Dose 125 MLS/HR; Start 10/20/16 at 10:00 Insulin Glargine (Lantus) 15 unit DAILY@20 SC Last administered on 10/20/16 01: 34; Admin Dose 15 UNIT; Start 10/20/16 at 20:00 Diagnostic Test (Pha) (Accu-Chek) 1 ea 02 XX ; Start 10/20/16 at 02:00 Morphine Sulfate (morphine) 2 mg Q4H PRN IV PAIN; Start 10/20/16 at 01:30 Acetaminophen (Tylenol Tab) 650 mg Q6H PRN PO PAIN AND OR ELEVATED TEMP; Start 10/20/16 at 01:30 Ondansetron HCl (Zofran Inj) 4 mg Q6H PRN IV NAUSEA AND/OR VOMITING; Start 10/20 at 01:30 JAZZ MELGAR Oct 20, 2016 11:46
[2016-10-20] MEDS: METOPROLOL 25 MG TAB PO SCH (12:45)
[2016-10-20] MEDS ORDERED: COLLAGENASE 30 GM TUBE TOP SCH (18:00)
[2016-10-20 19:46] VITALS: BP 172/73; RESP 20
[2016-10-20 21:14] VITALS: BP 147/71; RESP 18
[2016-10-20] MEDS: ATORVASTATIN 40 MG TAB PO SCH (21:23)
[2016-10-21] MEDS: ACCU-CHEK XX SCH (02:00)
[2016-10-21 05:52] LABS: BASOPHILS % 0.5 % (0.0-2.0); EOSINOPHILS # 0.2 10^3/ul (0.0-0.5); EOSINOPHILS % 2.6 % (0.0-7.0); HEMATOCRIT 35.4 % (37.0-47.0); HEMOGLOBIN 11.4 g/dl (12.0-16.0); LYMPHOCYTES # 2.7 10^3/ul (0.8-2.9); LYMPHOCYTES % 47.4 % (15.0-51.0); MEAN CORPUSCULAR HEMOGLOBIN 28.7 pg (29.0-33.0); MEAN CORPUSCULAR HGB CONC 32.2 g/dl (32.0-37.0); MEAN CORPUSCULAR VOLUME 89.2 fl (82.0-101.0); MEAN PLATELET VOLUME 12.3 fl (7.4-10.4); MONOCYTE # 0.5 10^3/ul (0.3-0.9); MONOCYTES % 9.2 % (0.0-11.0); NEUTROPHIL # 2.3 10^3/ul (1.6-7.5); NEUTROPHILS % 39.9 % (39.0-77.0); PLATELET COUNT 268 10^3/UL (140-415); RED BLOOD COUNT 3.97 10^6/ul (4.20-5.40); RED CELL DISTRIBUTION WIDTH 13.2 % (11.5-14.5); WHITE BLOOD COUNT 5.7 10^3/ul (4.8-10.8)
[2016-10-21 06:00] LABS: CALCIUM 9.9 mg/dl (8.4-10.2); CREATININE 0.66 mg/dl (0.44-1.00)
[2016-10-21] MEDS: PANTOPRAZOLE (EC) 40 MG TAB PO SCH (06:21)
[2016-10-21] MEDS: HEPARIN 5,000 UNIT/0.5 ML VIAL SC SCH ×3 (06:22→22:20)
[2016-10-21 06:36] LABS: ADD SCAN DIFF NO
[2016-10-21] MEDS: INSULIN ASPART [NOVOLOG] 3 ML PEN SC SCH ×4 (09:31→20:32)
[2016-10-21] MEDS: BENAZEPRIL 40 MG TAB PO SCH (09:34)
[2016-10-21] MEDS: HYDROCHLOROTHIAZIDE 25 MG TAB PO SCH (09:34)
[2016-10-21] MEDS: COLLAGENASE 30 GM TUBE TOP SCH (09:34)
[2016-10-21] MEDS: METOPROLOL 25 MG TAB PO SCH (09:35)
[2016-10-21 10:07] VITALS: BP 172/81; RESP 17
[2016-10-21] MEDS: VANCOMYCIN 1 GM in NS 250 ML IVPB SCH (11:01)
[2016-10-21 17:42] VITALS: BP 145/65; PULSE 71; RESP 16
--- NOTE | 2016-10-21 17:45 | PN ---
Date/Time of Note Date/Time of Note DATE: 10/21/16 TIME: 17:44 Assessment/Plan VTE Prophylaxis VTE Prophylaxis Intervention: other Lines/Catheters IV [facility] Type [facility] Saline Lock Urinary Cath still in place: No Assessment/Plan Chief Complaint/Hosp Course OSTEOMYELITES DM PLAN ANTIBIOTIC Problems: Subjective 24 Hr Interval Summary Respiratory: no complaints Cardiovascular: no complaints Gastrointestinal: no complaints Musculoskeletal: no complaints Exam/Review of Systems Vital Signs Vitals Vital Signs Date Time Temp Pulse Resp B/P Pulse Ox O2 Delivery O2 Flow Rate FiO2 10/21/16 17:42 71 16 145/65 10/21/16 10:07 98.5 95 10/20/16 00:21 Room Air Intake and Output 10/20/16 10/20/16 10/21/16 15:00 23:00 07:00 Intake Total 250 ml 1180 ml 250 ml Balance 250 ml 1180 ml 250 ml Exam Neck: supple Respiratory: clear to auscultation Cardiovascular: regular rate and rhythm Gastrointestinal: bowel sounds, soft Musculoskeletal: swelling (TOE LESS) Results Result Diagram: 10/21/16 0502 10/21/16 0502 Results 24 hrs Laboratory Tests Test 10/20/16 21:18 10/21/16 02:09 10/21/16 05:02 10/21/16 09:13 Bedside Glucose 210 156 White Blood Count 5.7 # Red Blood Count 3.97 L Hemoglobin 11.4 L Hematocrit 35.4 L Mean Corpuscular Volume 89.2 Mean Corpuscular Hemoglobin 28.7 L Mean Corpuscular Hemoglobin Concent 32.2 Red Cell Distribution Width 13.2 Platelet Count 268 Mean Platelet Volume 12.3 H Neutrophils % 39.9 Lymphocytes % 47.4 Monocytes % 9.2 Eosinophils % 2.6 Basophils % 0.5 Nucleated Red Blood Cells % 0.0 Neutrophils # 2.3 Lymphocytes # 2.7 Monocytes # 0.5 Eosinophils # 0.2 Basophils # 0.0 Nucleated Red Blood Cells # 0.0 Sodium Level 142 Potassium Level 4.0 Chloride Level 98 Carbon Dioxide Level 28 Anion Gap 20 H Blood Urea Nitrogen 18 Creatinine 0.66 Glucose Level 181 Calcium Level 9.9 Vancomycin Level Trough 12.6 Test 10/21/16 09:22 10/21/16 12:14 Bedside Glucose 292 H 200 Medications Medications Current Medications Heparin Sodium (Porcine) (Heparin (5000 Units/0.5 ml)) 5,000 unit Q8 SC Last administered on 10/21/16 15:15; Admin Dose 5,000 UNIT; Start 10/19/16 at 22:00 Atorvastatin Calcium (Lipitor) 40 mg QHS PO Last administered on 10/20/16 21:23 ; Admin Dose 40 MG; Start 10/20/16 at 21:00 Benazepril HCl (Lotensin) 40 mg DAILY PO Last administered on 10/21/16 09:34; Admin Dose 40 MG; Start 10/20/16 at 09:00 Hydrochlorothiazide (Hydrochlorothiazide) 25 mg DAILY PO Last administered on 09:34; Admin Dose 25 MG; Start 10/20/16 at 09:00 Miscellaneous Information 1 ea NOTE XX ; Start 10/19/16 at 22:00 Glucose (Glutose) 15 gm Q15M PRN PO DECREASED GLUCOSE; Start 10/19/16 at 22:00 Glucose (Glutose) 22.5 gm Q15M PRN PO DECREASED GLUCOSE; Start 10/19/16 at 22: 00 Dextrose (D50w Syringe) 25 ml Q15M PRN IV DECREASED GLUCOSE; Start 10/19/16 at 22:00 Dextrose (D50w Syringe) 50 ml Q15M PRN IV DECREASED GLUCOSE; Start 10/19/16 at 22:00 Glucagon (Glucagen) 1 mg Q15M PRN IM DECREASED GLUCOSE; Start 10/19/16 at 22:00 Glucose (Glutose) 15 gm Q15M PRN BUCCAL DECREASED GLUCOSE; Start 10/19/16 at 22 :00 Insulin Glargine (Lantus) 15 unit DAILY@20 SC Last administered on 10/20/16 21: 23; Admin Dose 15 UNIT; Start 10/20/16 at 20:00 Diagnostic Test (Pha) (Accu-Chek) 1 ea 02 XX Last administered on 10/21/16 02: 00; Admin Dose 1 EA; Start 10/20/16 at 02:00 Morphine Sulfate (morphine) 2 mg Q4H PRN IV PAIN; Start 10/20/16 at 01:30 Acetaminophen (Tylenol Tab) 650 mg Q6H PRN PO PAIN AND OR ELEVATED TEMP; Start 10/20/16 at 01:30 Ondansetron HCl (Zofran Inj) 4 mg Q6H PRN IV NAUSEA AND/OR VOMITING; Start 10/20 at 01:30 Metoprolol Tartrate (Lopressor) 25 mg DAILY PO Last administered on 10/21/16 09 :35; Admin Dose 25 MG; Start 10/20/16 at 12:00 Pantoprazole (Protonix Tab) 40 mg DAILY@06 PO Last administered on 10/21/16 06: 21; Admin Dose 40 MG; Start 10/21/16 at 06:00 Collagenase 1 applic 1 applic DAILY TOP Last administered on 10/21/16 09:34; Admin Dose 1 APPLIC; Start 10/21/16 at 09:00 Vancomycin HCl/ Sodium Chloride (Vancocin/NS) 250 ml @ 83.333 mls/ hr Q12H IVPB ; Start 10/21/16 at 22:00 KYLEE CHEN MD Oct 21, 2016 17:45
[2016-10-21 20:20] VITALS: BP 154/70; RESP 18
[2016-10-21] MEDS: INSULIN GLARGINE [LANtus] 3 ML PEN SC SCH (20:31)
[2016-10-21] MEDS: ATORVASTATIN 40 MG TAB PO SCH (20:33)
[2016-10-21] MEDS: VANCOMYCIN 1.25 GM in SOD CHLORIDE 0.9% 250 ML IVPB SCH (22:16)
--- NOTE | 2016-10-21 23:49 | CONS ---
Date/Time of Note Date/Time of Note DATE: 10/21/16 TIME: 23:49 Assessment/Plan Assessment/Plan Problems: (1) Diabetes, polyneuropathy (2) Morbid obesity (3) Osteomyelitis Status: Acute (4) Foot ulcer Status: Acute Additional Assessment/Plan This is a 60-year-old female patient with open wound and possible osteomyelitis of the left second toe. Patient's prognosis is guarded. 1. MRI will be reviewed when available in the left foot 2. Daily dressing change with Santyl ointment to the left foot 3. Infectious disease specialty consultation Patient will be followed in-house. Thank you again for involving me in the care of this patient. If you have any questions regarding this case, please feel free to contact me at pager: [phone] or reach me at mobile: [phone]. Consultation Date/Type/Reason Admit Date/Time Oct 19, 2016 at 21:31 Date of Consultation: Oct 21, 2016 Type of Consultation: Foot and ankle surgery Reason for Consultation Infected right second toe. Hx of Present Illness Thank you very much for involving me in the care of this patient. As you very well-known, this is a 60-year-old female patient who was admitted to the hospital for infection in the left second toe. The patient's past medical history significant for diabetes mellitus type 2, hypertension, obesity. I was consult to evaluate and treat infection of the left second toe. Patient reports condition has been going on for 2 months. Denies fever and chills and reports no pain. Constitutional: improved, no complaints Eyes: no complaints ENT: no complaints Respiratory: no complaints Cardiovascular: no complaints Gastrointestinal: no complaints Musculoskeletal: no complaints Neurologic: no complaints Psychological: no complaints Past Medical History As per HPI Medical History: diabetes, high cholesterol, hypertension Past Surgical History As per HPI Past Surgical Hx: no surgical history Social History As per HPI Alcohol Use: none Smoking Status: Never smoker Drug Use: none Exam/Review of Systems Vital Signs Vitals Vital Signs Date Time Temp Pulse Resp B/P Pulse Ox O2 Delivery O2 Flow Rate FiO2 10/21/16 20:20 98.3 75 18 154/70 94 10/20/16 00:21 Room Air Intake and Output 10/20/16 10/20/16 10/21/16 15:00 23:00 07:00 Intake Total 250 ml 1180 ml 250 ml Balance 250 ml 1180 ml 250 ml Exam GENERAL: Patient is in no acute distress; morbidly obese patient; ambulates with normal angle and base of gait; laying supine in bed with dressing to the left second toe VASCULAR: Pedal pulses are weakly palpable bilaterally. There is mild edema of the left second toe noted otherwise no edema bilateral lower legs. Normal temperature gradient noted bilaterally. Capillary filling time is delayed. No varicose veins noted in the lower extremity. Lower leg hyperpigmentation absent NEUROLOGICAL: Protective sensation is diminished to sharp, dull, vibratory and temperature stimuli bilaterally. Deep tendon reflexes are normal bilateral SKIN: Open wound distal left second toe with necrotic tissue and no surrounding erythema. No drainage of pus and no bleeding noted. Mildly tender to palpation. No erythema noted MUSCULOSKELETAL: Contracted toes noted on both feet with rectus foot type. Nontender to exam. Imaging reviewed Results Result Diagram: 10/21/16 0502 10/21/16 0502 Results 24 hrs Laboratory Tests Test 10/21/16 02:09 10/21/16 05:02 10/21/16 09:13 10/21/16 09:22 Bedside Glucose 156 292 H White Blood Count 5.7 # Red Blood Count 3.97 L Hemoglobin 11.4 L Hematocrit 35.4 L Mean Corpuscular Volume 89.2 Mean Corpuscular Hemoglobin 28.7 L Mean Corpuscular Hemoglobin Concent 32.2 Red Cell Distribution Width 13.2 Platelet Count 268 Mean Platelet Volume 12.3 H Neutrophils % 39.9 Lymphocytes % 47.4 Monocytes % 9.2 Eosinophils % 2.6 Basophils % 0.5 Nucleated Red Blood Cells % 0.0 Neutrophils # 2.3 Lymphocytes # 2.7 Monocytes # 0.5 Eosinophils # 0.2 Basophils # 0.0 Nucleated Red Blood Cells # 0.0 Sodium Level 142 Potassium Level 4.0 Chloride Level 98 Carbon Dioxide Level 28 Anion Gap 20 H Blood Urea Nitrogen 18 Creatinine 0.66 Glucose Level 181 Calcium Level 9.9 Vancomycin Level Trough 12.6 Test 10/21/16 12:14 10/21/16 17:25 10/21/16 20:26 Bedside Glucose 200 178 216 Medications Medications Current Medications Heparin Sodium (Porcine) (Heparin (5000 Units/0.5 ml)) 5,000 unit Q8 SC Last administered on 10/21/16t 22:20; Admin Dose 5,000 UNIT; Start 10/19/16 at 22:00 Atorvastatin Calcium (Lipitor) 40 mg QHS PO Last administered on 10/21/16 20:33 ; Admin Dose 40 MG; Start 10/20/16 at 21:00 Benazepril HCl (Lotensin) 40 mg DAILY PO Last administered on 10/21/16 09:34; Admin Dose 40 MG; Start 10/20/16 at 09:00 Hydrochlorothiazide (Hydrochlorothiazide) 25 mg DAILY PO Last administered on 09:34; Admin Dose 25 MG; Start 10/20/16 at 09:00 Miscellaneous Information 1 ea NOTE XX ; Start 10/19/16 at 22:00 Glucose (Glutose) 15 gm Q15M PRN PO DECREASED GLUCOSE; Start 10/19/16 at 22:00 Glucose (Glutose) 22.5 gm Q15M PRN PO DECREASED GLUCOSE; Start 10/19/16 at 22: 00 Dextrose (D50w Syringe) 25 ml Q15M PRN IV DECREASED GLUCOSE; Start 10/19/16 at 22:00 Dextrose (D50w Syringe) 50 ml Q15M PRN IV DECREASED GLUCOSE; Start 10/19/16 at 22:00 Glucagon (Glucagen) 1 mg Q15M PRN IM DECREASED GLUCOSE; Start 10/19/16 at 22:00 Glucose (Glutose) 15 gm Q15M PRN BUCCAL DECREASED GLUCOSE; Start 10/19/16 at 22 :00 Insulin Glargine (Lantus) 15 unit DAILY@20 SC Last administered on 10/21/16 20: 31; Admin Dose 15 UNIT; Start 10/20/16 at 20:00 Diagnostic Test (Pha) (Accu-Chek) 1 ea 02 XX Last administered on 10/21/16 02: 00; Admin Dose 1 EA; Start 10/20/16 at 02:00 Morphine Sulfate (morphine) 2 mg Q4H PRN IV PAIN; Start 10/20/16 at 01:30 Acetaminophen (Tylenol Tab) 650 mg Q6H PRN PO PAIN AND OR ELEVATED TEMP; Start 10/20/16 at 01:30 Ondansetron HCl (Zofran Inj) 4 mg Q6H PRN IV NAUSEA AND/OR VOMITING; Start 10/20 at 01:30 Metoprolol Tartrate (Lopressor) 25 mg DAILY PO Last administered on 10/21/16 09 :35; Admin Dose 25 MG; Start 10/20/16 at 12:00 Pantoprazole (Protonix Tab) 40 mg DAILY@06 PO Last administered on 10/21/16 06: 21; Admin Dose 40 MG; Start 10/21/16 at 06:00 Collagenase 1 applic 1 applic DAILY TOP Last administered on 10/21/16 09:34; Admin Dose 1 APPLIC; Start 10/21/16 at 09:00 Vancomycin HCl/ Sodium Chloride (Vancocin/NS) 250 ml @ 83.333 mls/ hr Q12H IVPB Last administered on 10/21/16 22:16; Admin Dose 83.333 MLS/HR; Start at 22:00 JOSEPH KOROMA DPDomingo Oct 21, 2016 23:49
[2016-10-22] MEDS: ACCU-CHEK XX SCH (02:00)
[2016-10-22] MEDS: PANTOPRAZOLE (EC) 40 MG TAB PO SCH (05:31)
[2016-10-22] MEDS: HEPARIN 5,000 UNIT/0.5 ML VIAL SC SCH ×3 (05:32→21:32)
[2016-10-22 07:47] VITALS: BP 171/74; RESP 16
[2016-10-22] MEDS: METOPROLOL 25 MG TAB PO SCH (08:56)
[2016-10-22] MEDS: INSULIN ASPART [NOVOLOG] 3 ML PEN SC SCH ×4 (08:56→20:55)
[2016-10-22] MEDS: COLLAGENASE 30 GM TUBE TOP SCH (08:57)
[2016-10-22] MEDS: BENAZEPRIL 40 MG TAB PO SCH (08:57)
[2016-10-22] MEDS: HYDROCHLOROTHIAZIDE 25 MG TAB PO SCH (08:57)
[2016-10-22] MEDS: VANCOMYCIN 1.25 GM in SOD CHLORIDE 0.9% 250 ML IVPB SCH ×3 (10:19→21:33)
--- NOTE | 2016-10-22 11:49 | PN ---
Date/Time of Note Date/Time of Note DATE: 10/22/16 TIME: 11:49 Assessment/Plan VTE Prophylaxis VTE Prophylaxis Intervention: heparin Lines/Catheters IV [facility] (from [facility]): Saline Lock Urinary Cath still in place: No Assessment/Plan Chief Complaint/Hosp Course 1. distal phalanx osteomyelitis II toe left foot 2. DM type II uncontrolled 3. Hypertension, uncontrolled 4. Obesity Problems: Subjective 24 Hr Interval Summary Eyes: no complaints Respiratory: no complaints Exam/Review of Systems Vital Signs Vitals Vital Signs Date Time Temp Pulse Resp B/P Pulse Ox O2 Delivery O2 Flow Rate FiO2 10/22/16 07:47 98.3 80 16 171/74 94 10/20/16 00:21 Room Air Intake and Output 10/21/16 10/21/16 10/22/16 15:00 23:00 07:00 Intake Total 500 ml 1230 ml 700 ml Balance 500 ml 1230 ml 700 ml Exam Constitutional: alert, oriented Musculoskeletal: swelling (II toe left decreased) Results Result Diagram: 10/21/16 0502 10/21/16 0502 Results 24 hrs Laboratory Tests Test 10/21/16 12:14 10/21/16 17:25 10/21/16 20:26 10/22/16 01:55 Bedside Glucose 200 178 216 165 Test 10/22/16 07:41 Bedside Glucose 212 Medications Medications Current Medications Heparin Sodium (Porcine) (Heparin (5000 Units/0.5 ml)) 5,000 unit Q8 SC Last administered on 10/22/16 05:32; Admin Dose 5,000 UNIT; Start 10/19/16 at 22:00 Atorvastatin Calcium (Lipitor) 40 mg QHS PO Last administered on 10/21/16 20:33 ; Admin Dose 40 MG; Start 10/20/16 at 21:00 Benazepril HCl (Lotensin) 40 mg DAILY PO Last administered on 10/22/16 08:57; Admin Dose 40 MG; Start 10/20/16 at 09:00 Hydrochlorothiazide (Hydrochlorothiazide) 25 mg DAILY PO Last administered on 08:57; Admin Dose 25 MG; Start 10/20/16 at 09:00 Miscellaneous Information 1 ea NOTE XX ; Start 10/19/16 at 22:00 Glucose (Glutose) 15 gm Q15M PRN PO DECREASED GLUCOSE; Start 10/19/16 at 22:00 Glucose (Glutose) 22.5 gm Q15M PRN PO DECREASED GLUCOSE; Start 10/19/16 at 22: 00 Dextrose (D50w Syringe) 25 ml Q15M PRN IV DECREASED GLUCOSE; Start 10/19/16 at 22:00 Dextrose (D50w Syringe) 50 ml Q15M PRN IV DECREASED GLUCOSE; Start 10/19/16 at 22:00 Glucagon (Glucagen) 1 mg Q15M PRN IM DECREASED GLUCOSE; Start 10/19/16 at 22:00 Glucose (Glutose) 15 gm Q15M PRN BUCCAL DECREASED GLUCOSE; Start 10/19/16 at 22 :00 Insulin Glargine (Lantus) 15 unit DAILY@20 SC Last administered on 10/21/16 20: 31; Admin Dose 15 UNIT; Start 10/20/16 at 20:00 Diagnostic Test (Pha) (Accu-Chek) 1 ea 02 XX Last administered on 10/21/16 02: 00; Admin Dose 1 EA; Start 10/20/16 at 02:00 Morphine Sulfate (morphine) 2 mg Q4H PRN IV PAIN; Start 10/20/16 at 01:30 Acetaminophen (Tylenol Tab) 650 mg Q6H PRN PO PAIN AND OR ELEVATED TEMP; Start 10/20/16 at 01:30 Ondansetron HCl (Zofran Inj) 4 mg Q6H PRN IV NAUSEA AND/OR VOMITING; Start 10/20 at 01:30 Metoprolol Tartrate (Lopressor) 25 mg DAILY PO Last administered on 10/22/16 08 :56; Admin Dose 25 MG; Start 10/20/16 at 12:00 Pantoprazole (Protonix Tab) 40 mg DAILY@06 PO Last administered on 10/22/16 05: 31; Admin Dose 40 MG; Start 10/21/16 at 06:00 Collagenase 1 applic 1 applic DAILY TOP Last administered on 10/22/16 08:57; Admin Dose 1 APPLIC; Start 10/21/16 at 09:00 Vancomycin HCl/ Sodium Chloride (Vancocin/NS) 250 ml @ 83.333 mls/ hr Q12H IVPB Last administered on 10/22/16 10:19; Admin Dose 83.333 MLS/HR; Start 7/2/ 17 at 22:00 JAZZ MELGAR Oct 22, 2016 11:49
[2016-10-22] MEDS: LINAGLIPTIN 5 MG TABLET PO SCH (12:38)
[2016-10-22 12:50] VITALS: BP 165/72; PULSE 70; RESP 18
[2016-10-22 20:21] VITALS: BP 142/65; RESP 18
[2016-10-22] MEDS: ATORVASTATIN 40 MG TAB PO SCH (20:54)
[2016-10-22] MEDS: INSULIN GLARGINE [LANtus] 3 ML PEN SC SCH (20:56)
[2016-10-23] MEDS: ACCU-CHEK XX SCH (02:00)
[2016-10-23 04:58] LABS: ADD SCAN DIFF NO
[2016-10-23 05:00] LABS: BASOPHILS % 0.5 % (0.0-2.0); EOSINOPHILS # 0.2 10^3/ul (0.0-0.5); EOSINOPHILS % 2.3 % (0.0-7.0); HEMATOCRIT 35.9 % (37.0-47.0); HEMOGLOBIN 11.2 g/dl (12.0-16.0); LYMPHOCYTES # 2.2 10^3/ul (0.8-2.9); LYMPHOCYTES % 32.5 % (15.0-51.0); MEAN CORPUSCULAR HEMOGLOBIN 28.1 pg (29.0-33.0); MEAN CORPUSCULAR HGB CONC 31.2 g/dl (32.0-37.0); MEAN PLATELET VOLUME 11.9 fl (7.4-10.4); MONOCYTE # 0.7 10^3/ul (0.3-0.9); MONOCYTES % 10.8 % (0.0-11.0); NEUTROPHIL # 3.6 10^3/ul (1.6-7.5); NEUTROPHILS % 53.4 % (39.0-77.0); PLATELET COUNT 288 10^3/UL (140-415); RED BLOOD COUNT 3.99 10^6/ul (4.20-5.40); RED CELL DISTRIBUTION WIDTH 13.3 % (11.5-14.5); WHITE BLOOD COUNT 6.7 10^3/ul (4.8-10.8)
[2016-10-23 05:30] LABS: CALCIUM 9.8 mg/dl (8.4-10.2); CREATININE 0.81 mg/dl (0.44-1.00); POTASSIUM 3.7 mmol/L (3.5-5.1)
[2016-10-23] MEDS: HEPARIN 5,000 UNIT/0.5 ML VIAL SC SCH ×3 (06:05→21:39)
[2016-10-23] MEDS: PANTOPRAZOLE (EC) 40 MG TAB PO SCH (06:05)
[2016-10-23] MEDS: INSULIN ASPART [NOVOLOG] 3 ML PEN SC SCH ×4 (07:53→21:26)
[2016-10-23 08:18] VITALS: BP 122/68; RESP 20
[2016-10-23] MEDS: LINAGLIPTIN 5 MG TABLET PO SCH (08:24)
[2016-10-23] MEDS: HYDROCHLOROTHIAZIDE 25 MG TAB PO SCH (08:24)
[2016-10-23] MEDS: BENAZEPRIL 40 MG TAB PO SCH (08:25)
[2016-10-23] MEDS: COLLAGENASE 30 GM TUBE TOP SCH (08:25)
[2016-10-23] MEDS: METOPROLOL 50 MG TAB PO SCH (08:25)
[2016-10-23] MEDS: VANCOMYCIN 1.25 GM in SOD CHLORIDE 0.9% 250 ML IVPB SCH (11:41)
--- NOTE | 2016-10-23 11:56 | PN ---
Date/Time of Note Date/Time of Note DATE: 10/23/16 TIME: 11:55 Assessment/Plan VTE Prophylaxis VTE Prophylaxis Intervention: ambulation Lines/Catheters IV [facility] Saline Lock Urinary Cath still in place: No Assessment/Plan Chief Complaint/Hosp Course 1. distal phalanx osteomyelitis II toe left foot 2. DM type II uncontrolled 3. Hypertension, uncontrolled 4. Obesity Problems: Assessment/Plan 1. continue current regime Subjective 24 Hr Interval Summary Constitutional: improved, no complaints Exam/Review of Systems Vital Signs Vitals Vital Signs Date Time Temp Pulse Resp B/P Pulse Ox O2 Delivery O2 Flow Rate FiO2 10/23/16 08:18 96.7 64 20 122/68 97 10/20/16 00:21 Room Air Intake and Output 10/22/16 10/22/16 10/23/16 15:00 23:00 07:00 Intake Total 250 ml 1200 ml 730 ml Balance 250 ml 1200 ml 730 ml Exam Constitutional: alert, oriented Respiratory: clear to auscultation Cardiovascular: regular rate and rhythm Gastrointestinal: soft Musculoskeletal: nl extremities to inspection, swelling (left foot II toe) Results Result Diagram: 10/23/16 0445 10/23/16 0445 Results 24 hrs Laboratory Tests Test 10/22/16 12:30 10/22/16 18:00 10/22/16 20:52 10/23/16 02:01 Bedside Glucose 210 236 H 226 H 148 Test 10/23/16 04:45 10/23/16 07:50 10/23/16 08:25 White Blood Count 6.7 Red Blood Count 3.99 L Hemoglobin 11.2 L Hematocrit 35.9 L Mean Corpuscular Volume 90.0 Mean Corpuscular Hemoglobin 28.1 L Mean Corpuscular Hemoglobin Concent 31.2 L Red Cell Distribution Width 13.3 Platelet Count 288 Mean Platelet Volume 11.9 H Neutrophils % 53.4 Lymphocytes % 32.5 Monocytes % 10.8 Eosinophils % 2.3 Basophils % 0.5 Nucleated Red Blood Cells % 0.0 Neutrophils # 3.6 Lymphocytes # 2.2 Monocytes # 0.7 Eosinophils # 0.2 Basophils # 0.0 Nucleated Red Blood Cells # 0.0 Sodium Level 135 Potassium Level 3.7 Chloride Level 102 Carbon Dioxide Level 30 Anion Gap 7 #L Blood Urea Nitrogen 20 Creatinine 0.81 Glucose Level 199 Calcium Level 9.8 Bedside Glucose 228 H Lab Scanned Report REFERENCE LAB Medications Medications Current Medications Heparin Sodium (Porcine) (Heparin (5000 Units/0.5 ml)) 5,000 unit Q8 SC Last administered on 10/23/16 06:05; Admin Dose 5,000 UNIT; Start 10/19/16 at 22:00 Atorvastatin Calcium (Lipitor) 40 mg QHS PO Last administered on 10/22/16 20:54 ; Admin Dose 40 MG; Start 10/20/16 at 21:00 Benazepril HCl (Lotensin) 40 mg DAILY PO Last administered on 10/23/16 08:25; Admin Dose 40 MG; Start 10/20/16 at 09:00 Hydrochlorothiazide (Hydrochlorothiazide) 25 mg DAILY PO Last administered on 08:24; Admin Dose 25 MG; Start 10/20/16 at 09:00 Miscellaneous Information 1 ea NOTE XX ; Start 10/19/16 at 22:00 Glucose (Glutose) 15 gm Q15M PRN PO DECREASED GLUCOSE; Start 10/19/16 at 22:00 Glucose (Glutose) 22.5 gm Q15M PRN PO DECREASED GLUCOSE; Start 10/19/16 at 22: 00 Dextrose (D50w Syringe) 25 ml Q15M PRN IV DECREASED GLUCOSE; Start 10/19/16 at 22:00 Dextrose (D50w Syringe) 50 ml Q15M PRN IV DECREASED GLUCOSE; Start 10/19/16 at 22:00 Glucagon (Glucagen) 1 mg Q15M PRN IM DECREASED GLUCOSE; Start 10/19/16 at 22:00 Glucose (Glutose) 15 gm Q15M PRN BUCCAL DECREASED GLUCOSE; Start 10/19/16 at 22 :00 Diagnostic Test (Pha) (Accu-Chek) 1 ea 02 XX Last administered on 10/21/16 02: 00; Admin Dose 1 EA; Start 10/20/16 at 02:00 Morphine Sulfate (morphine) 2 mg Q4H PRN IV PAIN; Start 10/20/16 at 01:30 Acetaminophen (Tylenol Tab) 650 mg Q6H PRN PO PAIN AND OR ELEVATED TEMP; Start 10/20/16 at 01:30 Ondansetron HCl (Zofran Inj) 4 mg Q6H PRN IV NAUSEA AND/OR VOMITING; Start 10/20 at 01:30 Pantoprazole (Protonix Tab) 40 mg DAILY@06 PO Last administered on 10/23/16 06: 05; Admin Dose 40 MG; Start 10/21/16 at 06:00 Collagenase 1 applic 1 applic DAILY TOP Last administered on 10/23/16 08:25; Admin Dose 1 APPLIC; Start 10/21/16 at 09:00 Vancomycin HCl/ Sodium Chloride (Vancocin/NS) 250 ml @ 83.333 mls/ hr Q12H IVPB Last administered on 10/23/16 11:41; Admin Dose 83.333 MLS/HR; Start at 22:00 Metoprolol Tartrate (Lopressor) 50 mg DAILY PO Last administered on 10/23/16 08 :25; Admin Dose 50 MG; Start 10/23/16 at 09:00 Linagliptin (Tradjenta) 5 mg DAILY PO Last administered on 10/23/16 08:24; Admin Dose 5 MG; Start 10/22/16 at 12:00 Insulin Glargine (Lantus) 20 unit DAILY@20 SC Last administered on 10/22/16 20: 56; Admin Dose 20 UNIT; Start 10/22/16 at 20:00 JAZZ MELGAR Oct 23, 2016 11:56
--- NOTE | 2016-10-23 12:21 | PN ---
Date/Time of Note Date/Time of Note DATE: 10/23/16 TIME: 12:16 Assessment/Plan Lines/Catheters IV [facility] Type [facility] Saline Lock Dooley in Place (from Nrs): No Assessment/Plan Problems: (1) Hypertension Status: Acute (2) Bronchitis Status: Acute (3) Osteomyelitis Status: Acute Qualifiers: Osteomyelitis type: subacute Osteomyelitis location: other site Qualified Code: M86.28 - Subacute osteomyelitis, other site (4) Foot ulcer Status: Acute Qualifiers: Laterality: left Non-pressure ulcer stage: with necrosis of bone Qualified Code: L97.524 - Foot ulcer, left, with necrosis of bone (5) Morbid obesity (6) Diabetes, polyneuropathy Assessment/Plan This is a 60-year-old female patient with osteomyelitis of the left second toe and chronic open wound. Patient's prognosis is guarded. 1. I recommend IV antibiotics for 4-6 weeks 2. PICC line recommended 3. Patient to follow-up at the amputation prevention center upon discharge 4. Daily dressing changes with Santyl ointment to the wound 5. The goal is to salvage the left second toe; patient is recommended to have hyperbaric oxygen treatment in conjunction to IV antibiotics I discussed case with patient and patient's physician team. Patient will be followed in-house. Thank you again for involving me in the care of this patient. If you have any questions regarding this case, please feel free to contact me at pager: or reach me at mobile: [phone]. Subjective 24 Hr Interval Summary Patient was seen at bedside. Patient is in no acute distress. Patient reports no new adverse events. Patient denies fever, chills, nausea or vomiting. Patient denies pain. Patient denies recent trauma. Patient reports bandages are being changed as directed. Patient does not report any new problems. Constitutional: BM, ambulates, flatus, improved, no complaints, urine output Pain Control: well controlled Exam/Review of Systems Vital Signs Vitals Vital Signs Date Time Temp Pulse Resp B/P Pulse Ox O2 Delivery O2 Flow Rate FiO2 10/23/16 08:18 96.7 64 20 122/68 97 10/20/16 00:21 Room Air Intake and Output 10/22/16 10/22/16 10/23/16 15:00 23:00 07:00 Intake Total 250 ml 1200 ml 730 ml Balance 250 ml 1200 ml 730 ml Exam Free Text/Dictation General appearance: Patient is morbidly obese; appears to be in no acute distress sitting comfortably in the exam chair. Gait is normal without a limp Vascular exam: Pedal pulses: weakly palpable bilateral feet; CFT: instantaneous on all toes; TG: normal bilateral lower extremity; Edema: absent bilateral lower extremity; VV: none noted on exam Neurological exam: Protective sensation is diminished to sharp, dull, vibratory and temperature stimuli bilaterally. Deep tendon reflexes are normal bilaterally. Negative Tinel sign Dermatological exam: Open wound distal left second toe with necrotic tissue and no erythema. No pus noted. No erythema noted on lower extremity exam Toenails: Toenails are dystrophic, discolored with subungual debris Musculoskeletal exam: No tenderness on palpation of bilateral feet and ankles. Contracted toes noted on both feet. Rectus foot type noted. Muscle power is 5/ 5 bilateral lower extremity Imaging: MRI shows high signal intensity in the distal phalanx of the left second toe with no drainable abscess in the left foot Results Result Diagram: 10/23/16 0445 10/23/16 0445 JOSEPH KOROMA DPM Oct 23, 2016 12:21
[2016-10-23] MEDS ORDERED: LIDOCAINE 1% (MPF) 5 ML VIAL SC ONE (12:30)
[2016-10-23 20:04] VITALS: BP 139/67; RESP 18; RESP 28
[2016-10-23] MEDS: ATORVASTATIN 40 MG TAB PO SCH (21:21)
[2016-10-23] MEDS: INSULIN GLARGINE [LANtus] 3 ML PEN SC SCH (21:27)
[2016-10-24] MEDS ORDERED: VANCOMYCIN 1.25 GM in SOD CHLORIDE 0.9% 250 ML IVPB SCH ×2
[2016-10-24] MEDS: ACCU-CHEK XX SCH (02:00)
[2016-10-24] MEDS: VANCOMYCIN 1 GM in NS 250 ML IVPB SCH ×2 (03:31→14:29)
[2016-10-24] MEDS: PANTOPRAZOLE (EC) 40 MG TAB PO SCH (05:39)
[2016-10-24] MEDS: HEPARIN 5,000 UNIT/0.5 ML VIAL SC SCH ×3 (05:42→21:53)
[2016-10-24 08:15] VITALS: BP 157/77; RESP 18
[2016-10-24] MEDS: HYDROCHLOROTHIAZIDE 25 MG TAB PO SCH (08:25)
[2016-10-24] MEDS: BENAZEPRIL 40 MG TAB PO SCH (08:25)
[2016-10-24] MEDS: LINAGLIPTIN 5 MG TABLET PO SCH (08:25)
[2016-10-24] MEDS: METOPROLOL 50 MG TAB PO SCH (08:26)
[2016-10-24] MEDS: COLLAGENASE 30 GM TUBE TOP SCH (08:26)
[2016-10-24] MEDS: INSULIN ASPART [NOVOLOG] 3 ML PEN SC SCH ×4 (08:27→21:38)
[2016-10-24] MEDS ORDERED: LIDOCAINE 1% (MPF) 5 ML VIAL SC ONE (16:30)
--- NOTE | 2016-10-24 19:39 | RADRPT ---
PROCEDURE: XR Chest. CLINICAL INDICATION: PICC placement. TECHNIQUE: Chest x-ray, single view. COMPARISON: FINDINGS: The cardiac silhouette is slightly magnified. Mild aortic arch atherosclerotic calcification is pre sent. Coarse lung markings are seen within the left upper lobe and are unchanged. A left upper extr emity PICC is in place and terminates within the upper right atrium , which is slightly low in posit ion. Skeletal structures and upper abdomen are unremarkable. IMPRESSION: Left upper extremity PICC, slightly low in position. Recommend mild retraction by approximately 3.0 cm. RPTAT: HLST .Theresa Weber MD, Date Time Electronically viewed and signed by .Theresa Weber MD, on 10/24/2016 19:39 .T/
--- NOTE | 2016-10-24 19:40 | RADRPT ---
PROCEDURE: XR Chest. CLINICAL INDICATION: PICC placement. TECHNIQUE: Chest x-ray, single view. COMPARISON: 10/24/2016 at 1652 hours. FINDINGS: The cardiac silhouette is slightly magnified. Coarse lung markings are seen within the left upper l obe and are unchanged. The left upper extremity PICC has been mildly retracted and is centered at t he SVC/right atrial junction, which is satisfactory in position. Skeletal structures and upper abdo men are unremarkable. IMPRESSION: Satisfactory positioning of left upper extremity PICC. RPTAT: HLST .Theresa Weber MD, MD Date Time Electronically viewed and signed by .Theresa Weber MD, MD on 10/24/2016 19:40 .T/
[2016-10-24 19:57] VITALS: BP 150/70; RESP 19
[2016-10-24] MEDS: INSULIN GLARGINE [LANtus] 3 ML PEN SC SCH (20:14)
--- NOTE | 2016-10-24 20:22 | PN ---
Date/Time of Note Date/Time of Note DATE: 10/24/16 TIME: 20:21 Assessment/Plan VTE Prophylaxis VTE Prophylaxis Intervention: other Lines/Catheters IV Catheter Type (from Nrs): PICC Line Central line still needed: Yes Urinary Cath still in place: No Assessment/Plan Chief Complaint/Hosp Course OSTEOMYELITES DM PLAN ANTIBIOTIC PICC LINE PLACEMENT Problems: Subjective 24 Hr Interval Summary Cardiovascular: no complaints Gastrointestinal: no complaints Genitourinary: no complaints Exam/Review of Systems Vital Signs Vitals Vital Signs Date Time Temp Pulse Resp B/P Pulse Ox O2 Delivery O2 Flow Rate FiO2 10/24/16 19:57 97.9 72 19 150/70 93 Intake and Output 10/23/16 10/23/16 10/24/16 15:00 23:00 07:00 Intake Total 1663.33 ml 1000 ml Balance 1663.33 ml 1000 ml Exam Respiratory: clear to auscultation Cardiovascular: regular rate and rhythm Gastrointestinal: soft Musculoskeletal: nl extremities to inspection Results Result Diagram: 10/23/16 0445 10/23/16 0445 Results 24 hrs Laboratory Tests Test 10/23/16 21:24 10/23/16 23:00 10/24/16 02:15 10/24/16 07:51 Bedside Glucose 247 H 198 258 H Vancomycin Level Trough 19.2 Test 10/24/16 11:55 10/24/16 17:29 Bedside Glucose 215 205 Medications Medications Current Medications Heparin Sodium (Porcine) (Heparin (5000 Units/0.5 ml)) 5,000 unit Q8 SC Last administered on 10/24/16 14:29; Admin Dose 5,000 UNIT; Start 10/19/16 at 22:00 Atorvastatin Calcium (Lipitor) 40 mg QHS PO Last administered on 10/23/16 21:21 ; Admin Dose 40 MG; Start 10/20/16 at 21:00 Benazepril HCl (Lotensin) 40 mg DAILY PO Last administered on 10/24/16 08:25; Admin Dose 40 MG; Start 10/20/16 at 09:00 Hydrochlorothiazide (Hydrochlorothiazide) 25 mg DAILY PO Last administered on 08:25; Admin Dose 25 MG; Start 10/20/16 at 09:00 Miscellaneous Information 1 ea NOTE XX ; Start 10/19/16 at 22:00 Glucose (Glutose) 15 gm Q15M PRN PO DECREASED GLUCOSE; Start 10/19/16 at 22:00 Glucose (Glutose) 22.5 gm Q15M PRN PO DECREASED GLUCOSE; Start 10/19/16 at 22: 00 Dextrose (D50w Syringe) 25 ml Q15M PRN IV DECREASED GLUCOSE; Start 10/19/16 at 22:00 Dextrose (D50w Syringe) 50 ml Q15M PRN IV DECREASED GLUCOSE; Start 10/19/16 at 22:00 Glucagon (Glucagen) 1 mg Q15M PRN IM DECREASED GLUCOSE; Start 10/19/16 at 22:00 Glucose (Glutose) 15 gm Q15M PRN BUCCAL DECREASED GLUCOSE; Start 10/19/16 at 22 :00 Diagnostic Test (Pha) (Accu-Chek) 1 ea 02 XX Last administered on 10/21/16 02: 00; Admin Dose 1 EA; Start 10/20/16 at 02:00 Morphine Sulfate (morphine) 2 mg Q4H PRN IV PAIN; Start 10/20/16 at 01:30 Acetaminophen (Tylenol Tab) 650 mg Q6H PRN PO PAIN AND OR ELEVATED TEMP; Start 10/20/16 at 01:30 Ondansetron HCl (Zofran Inj) 4 mg Q6H PRN IV NAUSEA AND/OR VOMITING; Start 10/20 at 01:30 Pantoprazole (Protonix Tab) 40 mg DAILY@06 PO Last administered on 10/24/16 05: 39; Admin Dose 40 MG; Start 10/21/16 at 06:00 Collagenase (Santyl) 1 applic DAILY TOP Last administered on 10/24/16 08:26; Admin Dose 1 APPLIC; Start 10/21/16 at 09:00 Metoprolol Tartrate (Lopressor) 50 mg DAILY PO Last administered on 10/24/16 08 :26; Admin Dose 50 MG; Start 10/23/16 at 09:00 Linagliptin (Tradjenta) 5 mg DAILY PO Last administered on 10/24/16 08:25; Admin Dose 5 MG; Start 10/22/16 at 12:00 Insulin Glargine 20 unit 20 unit DAILY@20 SC Last administered on 10/24/16 20: 14; Admin Dose 20 UNIT; Start 10/22/16 at 20:00 Vancomycin HCl (Vancocin) 250 ml @ 125 mls/hr Q12H IVPB Last administered on t 14:29; Admin Dose 125 MLS/HR; Start 10/24/16 at 03:00 Miscellaneous Information (*Rx Drug Level Order Reminder*) VANCO TROUGH @ 1, 400 ON... ONCE ONCE XX ; Start 10/25/16 at 14:00; Stop 10/25/16 at 14:01 IV Flush (NS 10 ml) 10 ml PRN PRN IV IV PROTOCOL; Start 10/24/16 at 18:00 KYLEE CHEN MD Oct 24, 2016 20:22
[2016-10-24] MEDS: ATORVASTATIN 40 MG TAB PO SCH (21:32)
--- NOTE | 2016-10-24 22:12 | RADRPT ---
PROCEDURE: Ultrasound guidance for placement of needle in left upper extremity vein. CLINICAL INDICATION: Venous access. TECHNIQUE: Limited sonography of the left upper extremity was performed. Ultrasound images were recorded and s tored in the patient's medical record. COMPARISON: None. FINDINGS: The ultrasound images demonstrate a patent left upper extremity vein. The PICC line was inserted by the PICC line nurse. IMPRESSION: 1. Ultrasound guidance for a needle placement in a left upper extremity vein. 2. The left upper extremity vein is patent. RPTAT: QQ .Talha Matt MD, MD Date Time Electronically viewed and signed by .Talha Matt MD, MD on 10/24/2016 22:11 .R/
[2016-10-25 02:09] VITALS: BP 122/58; RESP 19
[2016-10-25] MEDS: ACCU-CHEK XX SCH (02:16)
[2016-10-25] MEDS: VANCOMYCIN 1 GM in NS 250 ML IVPB SCH ×2 (03:04→15:30)
[2016-10-25] MEDS: PANTOPRAZOLE (EC) 40 MG TAB PO SCH (05:49)
[2016-10-25] MEDS: HEPARIN 5,000 UNIT/0.5 ML VIAL SC SCH ×3 (05:50→21:55)
[2016-10-25 06:54] LABS: CREATININE 0.76 mg/dl (0.44-1.00)
[2016-10-25] MEDS: METOPROLOL 50 MG TAB PO SCH (08:05)
[2016-10-25] MEDS: COLLAGENASE 30 GM TUBE TOP SCH (08:05)
[2016-10-25] MEDS: HYDROCHLOROTHIAZIDE 25 MG TAB PO SCH (08:05)
[2016-10-25] MEDS: LINAGLIPTIN 5 MG TABLET PO SCH (08:05)
[2016-10-25] MEDS: BENAZEPRIL 40 MG TAB PO SCH (08:05)
[2016-10-25] MEDS: INSULIN ASPART [NOVOLOG] 3 ML PEN SC SCH ×4 (08:07→21:20)
[2016-10-25 08:10] VITALS: BP 134/63; RESP 18
--- NOTE | 2016-10-25 08:21 | RADRPT ---
PROCEDURE: US Lower extremity Arteries. CLINICAL INDICATION: Lower extremity ulcer TECHNIQUE: Multiple longitudinal and transverse images of the bilateral lower extremity arteries w ere obtained with raymundo scale and color Doppler imaging. COMPARISON: No prior studies are available for comparison. FINDINGS: Location RightLeft [id number] cm/iye740 cm/sec PSFA98 cm/hwk694 cm/sec MSFA94 cm/amc238 cm/sec DSFA64 cm/sec58 cm/sec POP74 cm/icc807 cm/sec PTA89 cm/sec92 cm/sec DPA71 cm/jeu695 cm/sec Triphasic arterial wave forms are identified throughout the bilateral lower extremities. Diffuse calcific plaque is noted. ABIs could calculated secondary to diffuse arterial calcification. IMPRESSION: 1. Diffuse calcified atherosclerotic plaque is noted. 2. Focally elevated systolic velocity is seen in the left dorsalis pedis artery, suggestive of 50-7 5% stenosis in this location. RPTAT: EE .Tigre Bustillo MD, MD Date Time Electronically viewed and signed by .Tigre Bustillo MD, on 10/25/2016 08:21 .R/
[2016-10-25 14:42] VITALS: BP 142/73; RESP 20
--- NOTE | 2016-10-25 16:05 | PDOCDIS ---
Discharge Instructions CONDITION Patient Condition: Stable HOME CARE INSTRUCTIONS: Special Diet: 2 GM Na,1800 ADA ACTIVITY: Activity Restrictions: Slowly Increase Activity FOLLOW UP/APPOINTMENTS Follow-up Plan f/u own pcp [address] gayle 2 wks KYLEE CHEN MD Oct 25, 2016 16:05
--- NOTE | 2016-10-25 16:08 | PDOCDIS ---
Discharge Instructions CONDITION Patient Condition: Stable HOME CARE INSTRUCTIONS: Special Diet: 2 GM Na,1800 ADA ACTIVITY: Activity Restrictions: Slowly Increase Activity KYLEE CHEN MD Oct 25, 2016 16:08
[2016-10-25] MEDS ORDERED: LANT3I SC (16:09)
[2016-10-25] MEDS ORDERED: SAN30GM TOP (16:09)
[2016-10-25] MEDS ORDERED: METO-429 PO (16:09)
[2016-10-25] MEDS ORDERED: LINA5TAB PO (16:09)
[2016-10-25] MEDS ORDERED: ACET325T40 PO (16:09)
[2016-10-25] MEDS ORDERED: SOD CHLORIDE 0.9% 100 ML ONE (16:12)
--- NOTE | 2016-10-25 16:39 | PN ---
Date/Time of Note Date/Time of Note DATE: 10/25/16 TIME: 16:38 Assessment/Plan VTE Prophylaxis VTE Prophylaxis Intervention: other Lines/Catheters IV Catheter Type (from Nrs): PICC Line Central line still needed: Yes Urinary Cath still in place: No Assessment/Plan Chief Complaint/Hosp Course OSTEOMYELITES DM PLAN ANTIBIOTIC PICC LINE PLACEMENT home today Problems: Subjective 24 Hr Interval Summary Respiratory: no complaints Cardiovascular: no complaints Gastrointestinal: no complaints Exam/Review of Systems Vital Signs Vitals Vital Signs Date Time Temp Pulse Resp B/P Pulse Ox O2 Delivery O2 Flow Rate FiO2 10/25/16 14:42 98.1 73 20 142/73 95 Intake and Output 10/24/16 10/24/16 10/25/16 15:00 23:00 07:00 Intake Total 730 ml 1200 ml Balance 730 ml 1200 ml Exam Respiratory: clear to auscultation Cardiovascular: regular rate and rhythm Gastrointestinal: soft Musculoskeletal: nl extremities to inspection Results Result Diagram: 10/23/16 0445 10/25/16 0535 Results 24 hrs Laboratory Tests Test 10/24/16 17:29 10/24/16 20:12 10/24/16 21:35 10/25/16 02:15 Bedside Glucose 205 225 H 200 174 Test 10/25/16 05:35 10/25/16 07:51 10/25/16 11:55 10/25/16 13:50 Blood Urea Nitrogen 21 H Creatinine 0.76 Bedside Glucose 234 H 301 H Vancomycin Level Trough 15.4 Medications Medications Current Medications Heparin Sodium (Porcine) (Heparin (5000 Units/0.5 ml)) 5,000 unit Q8 SC Last administered on 10/25/16 14:20; Admin Dose 5,000 UNIT; Start 10/19/16 at 22:00 Atorvastatin Calcium (Lipitor) 40 mg QHS PO Last administered on 10/24/16 21:32 ; Admin Dose 40 MG; Start 10/20/16 at 21:00 Benazepril HCl (Lotensin) 40 mg DAILY PO Last administered on 10/25/16 08:05; Admin Dose 40 MG; Start 10/20/16 at 09:00 Hydrochlorothiazide (Hydrochlorothiazide) 25 mg DAILY PO Last administered on 08:05; Admin Dose 25 MG; Start 10/20/16 at 09:00 Miscellaneous Information 1 ea NOTE XX ; Start 10/19/16 at 22:00 Glucose (Glutose) 15 gm Q15M PRN PO DECREASED GLUCOSE; Start 10/19/16 at 22:00 Glucose (Glutose) 22.5 gm Q15M PRN PO DECREASED GLUCOSE; Start 10/19/16 at 22: 00 Dextrose (D50w Syringe) 25 ml Q15M PRN IV DECREASED GLUCOSE; Start 10/19/16 at 22:00 Dextrose (D50w Syringe) 50 ml Q15M PRN IV DECREASED GLUCOSE; Start 10/19/16 at 22:00 Glucagon (Glucagen) 1 mg Q15M PRN IM DECREASED GLUCOSE; Start 10/19/16 at 22:00 Glucose (Glutose) 15 gm Q15M PRN BUCCAL DECREASED GLUCOSE; Start 10/19/16 at 22 :00 Diagnostic Test (Pha) (Accu-Chek) 1 ea 02 XX Last administered on 10/25/16 02: 16; Admin Dose 1 EA; Start 10/20/16 at 02:00 Morphine Sulfate (morphine) 2 mg Q4H PRN IV PAIN; Start 10/20/16 at 01:30 Acetaminophen (Tylenol Tab) 650 mg Q6H PRN PO PAIN AND OR ELEVATED TEMP; Start 10/20/16 at 01:30 Ondansetron HCl (Zofran Inj) 4 mg Q6H PRN IV NAUSEA AND/OR VOMITING; Start 10/20 at 01:30 Pantoprazole (Protonix Tab) 40 mg DAILY@06 PO Last administered on 10/25/16 05: 49; Admin Dose 40 MG; Start 10/21/16 at 06:00 Collagenase (Santyl) 1 applic DAILY TOP Last administered on 10/25/16 08:05; Admin Dose 1 APPLIC; Start 10/21/16 at 09:00 Metoprolol Tartrate (Lopressor) 50 mg DAILY PO Last administered on 10/25/16 08 :05; Admin Dose 50 MG; Start 10/23/16 at 09:00 Linagliptin (Tradjenta) 5 mg DAILY PO Last administered on 10/25/16 08:05; Admin Dose 5 MG; Start 10/22/16 at 12:00 Insulin Glargine 20 unit 20 unit DAILY@20 SC Last administered on 7/5/17at 20: 14; Admin Dose 20 UNIT; Start 10/22/16 at 20:00 Vancomycin HCl (Vancocin) 250 ml @ 125 mls/hr Q12H IVPB Last administered on t 15:30; Admin Dose 125 MLS/HR; Start 10/24/16 at 03:00 IV Flush (NS 10 ml) 10 ml PRN PRN IV IV PROTOCOL; Start 10/24/16 at 18:00 KYLEE CHEN MD Oct 25, 2016 16:39
[2016-10-25] MEDS: INSULIN GLARGINE [LANtus] 3 ML PEN SC SCH (20:08)
[2016-10-25] MEDS: ATORVASTATIN 40 MG TAB PO SCH (20:29)
[2016-10-25 21:07] VITALS: BP 138/64; RESP 20
[2016-10-26] MEDS: ACCU-CHEK XX SCH (02:17)
[2016-10-26 02:48] VITALS: BP 157/70; RESP 19
[2016-10-26] MEDS: VANCOMYCIN 1 GM in NS 250 ML IVPB SCH ×2 (03:04→16:19)
[2016-10-26] MEDS: HEPARIN 5,000 UNIT/0.5 ML VIAL SC SCH ×3 (06:12→22:04)
[2016-10-26] MEDS: PANTOPRAZOLE (EC) 40 MG TAB PO SCH (06:13)
[2016-10-26] MEDS: LINAGLIPTIN 5 MG TABLET PO SCH (08:07)
[2016-10-26] MEDS: METOPROLOL 50 MG TAB PO SCH (08:07)
[2016-10-26] MEDS: HYDROCHLOROTHIAZIDE 25 MG TAB PO SCH (08:07)
[2016-10-26] MEDS: BENAZEPRIL 40 MG TAB PO SCH (08:07)
[2016-10-26] MEDS: COLLAGENASE 30 GM TUBE TOP SCH (08:08)
[2016-10-26] MEDS: INSULIN ASPART [NOVOLOG] 3 ML PEN SC SCH ×4 (08:09→21:07)
[2016-10-26 08:40] VITALS: BP 135/63; RESP 18
--- NOTE | 2016-10-26 12:23 | PN ---
Date/Time of Note Date/Time of Note DATE: 10/26/16 TIME: 12:21 Assessment/Plan VTE Prophylaxis VTE Prophylaxis Intervention: ambulation Lines/Catheters IV [facility]from [facility] PICC Line Central line still needed: Yes Urinary Cath still in place: No Assessment/Plan Chief Complaint/Hosp Course 1. distal phalanx osteomyelitis II toe left foot 2. DM type II uncontrolled 3. Hypertension, uncontrolled 4. Obesity Problems: Assessment/Plan 1. discharge today Subjective 24 Hr Interval Summary Constitutional: improved, no complaints Exam/Review of Systems Vital Signs Vitals Vital Signs Date Time Temp Pulse Resp B/P Pulse Ox O2 Delivery O2 Flow Rate FiO2 10/26/16 08:40 98.0 78 18 135/63 98 Intake and Output 10/25/16 10/25/16 10/26/16 15:00 23:00 07:00 Intake Total 1550 ml 1150 ml Balance 1550 ml 1150 ml Exam Constitutional: alert Musculoskeletal: other (wound on the left foot) Results Result Diagram: 10/23/16 0445 10/25/16 0535 Results 24 hrs Laboratory Tests Test 10/25/16 13:50 10/25/16 17:20 10/25/16 20:07 10/25/16 21:15 Vancomycin Level Trough 15.4 Bedside Glucose 140 212 247 H Test 10/26/16 01:55 10/26/16 07:55 10/26/16 12:04 Bedside Glucose 216 242 H 342 H Medications Medications Current Medications Heparin Sodium (Porcine) (Heparin (5000 Units/0.5 ml)) 5,000 unit Q8 SC Last administered on 10/26/16 06:12; Admin Dose 5,000 UNIT; Start 10/19/16 at 22:00 Atorvastatin Calcium (Lipitor) 40 mg QHS PO Last administered on 10/25/16 20:29 ; Admin Dose 40 MG; Start 10/20/16 at 21:00 Benazepril HCl (Lotensin) 40 mg DAILY PO Last administered on 10/26/16 08:07; Admin Dose 40 MG; Start 10/20/16 at 09:00 Hydrochlorothiazide (Hydrochlorothiazide) 25 mg DAILY PO Last administered on 08:07; Admin Dose 25 MG; Start 10/20/16 at 09:00 Miscellaneous Information 1 ea NOTE XX ; Start 10/19/16 at 22:00 Glucose (Glutose) 15 gm Q15M PRN PO DECREASED GLUCOSE; Start 10/19/16 at 22:00 Glucose (Glutose) 22.5 gm Q15M PRN PO DECREASED GLUCOSE; Start 10/19/16 at 22: 00 Dextrose (D50w Syringe) 25 ml Q15M PRN IV DECREASED GLUCOSE; Start 10/19/16 at 22:00 Dextrose (D50w Syringe) 50 ml Q15M PRN IV DECREASED GLUCOSE; Start 10/19/16 at 22:00 Glucagon (Glucagen) 1 mg Q15M PRN IM DECREASED GLUCOSE; Start 10/19/16 at 22:00 Glucose (Glutose) 15 gm Q15M PRN BUCCAL DECREASED GLUCOSE; Start 10/19/16 at 22 :00 Diagnostic Test (Pha) (Accu-Chek) 1 ea 02 XX Last administered on 10/26/16 02: 17; Admin Dose 1 EA; Start 10/20/16 at 02:00 Morphine Sulfate (morphine) 2 mg Q4H PRN IV PAIN; Start 10/20/16 at 01:30 Acetaminophen (Tylenol Tab) 650 mg Q6H PRN PO PAIN AND OR ELEVATED TEMP; Start 10/20/16 at 01:30 Ondansetron HCl (Zofran Inj) 4 mg Q6H PRN IV NAUSEA AND/OR VOMITING; Start 10/20 at 01:30 Pantoprazole (Protonix Tab) 40 mg DAILY@06 PO Last administered on 10/26/16 06: 13; Admin Dose 40 MG; Start 10/21/16 at 06:00 Collagenase (Santyl) 1 applic DAILY TOP Last administered on 10/26/16 08:08; Admin Dose 1 APPLIC; Start 10/21/16 at 09:00 Metoprolol Tartrate (Lopressor) 50 mg DAILY PO Last administered on 10/26/16 08 :07; Admin Dose 50 MG; Start 10/23/16 at 09:00 Linagliptin (Tradjenta) 5 mg DAILY PO Last administered on 10/26/16 08:07; Admin Dose 5 MG; Start 10/22/16 at 12:00 Insulin Glargine 20 unit 20 unit DAILY@20 SC Last administered on 10/25/16 20: 08; Admin Dose 20 UNIT; Start 10/22/16 at 20:00 Vancomycin HCl (Vancocin) 250 ml @ 125 mls/hr Q12H IVPB Last administered on t 03:04; Admin Dose 125 MLS/HR; Start 10/24/16 at 03:00 IV Flush (NS 10 ml) 10 ml PRN PRN IV IV PROTOCOL; Start 10/24/16 at 18:00 JAZZ MELGAR Oct 26, 2016 12:22
[2016-10-26 14:32] VITALS: BP 119/58; RESP 18
[2016-10-26 20:00] VITALS: BP 126/60; RESP 18
[2016-10-26] MEDS: INSULIN GLARGINE [LANtus] 3 ML PEN SC SCH (20:21)
[2016-10-26] MEDS: ATORVASTATIN 40 MG TAB PO SCH (20:21)
[2016-10-26] MEDS ORDERED: INSULIN ASPART [NOVOLOG] 3 ML PEN SC ONE (21:30)
--- NOTE | 2016-10-27 01:36 | PN ---
Date/Time of Note Date/Time of Note DATE: 10/26/16 Assessment/Plan Lines/Catheters IV [facility]ter Type ([facility] PICC Line Dooley in Place (from Nrs): No Assessment/Plan Problems: (1) Osteomyelitis Status: Acute Qualifiers: Osteomyelitis type: subacute Osteomyelitis location: other site Qualified Code: M86.28 - Subacute osteomyelitis, other site (2) Foot ulcer Status: Acute Qualifiers: Laterality: left Non-pressure ulcer stage: with necrosis of bone Qualified Code: L97.524 - Foot ulcer, left, with necrosis of bone (3) Morbid obesity (4) Diabetes, polyneuropathy (5) Hypertension Status: Acute Assessment/Plan Continue current treatment; continue IVABx; august d/c home and follow up in [facility] in one week. Will follow patient in house. Subjective 24 Hr Interval Summary Patient was seen at bedside. Patient is in no acute distress. Denies overnight adverse events. Denies fever, chills, nausea or vomiting. Reports bandages are being changed daily. Denies recent trauma. Patient denies pain in her left second toe. Pain Control: well controlled Exam/Review of Systems Vital Signs Vitals Vital Signs Date Time Temp Pulse Resp B/P Pulse Ox O2 Delivery O2 Flow Rate FiO2 10/26/16 20:00 98.4 77 18 126/60 97 Intake and Output 10/26/16 10/26/16 10/27/16 15:00 23:00 07:00 Intake Total 2090 ml Balance 2090 ml Exam Free Text/Dictation GENERAL: patient was seen at bedside; patient is in no acute distress, laying supine in bed VASC: pedal pulses are weak; cft is delayed; tg is normal NEURO: sensation decreased b/l feet DERM: open wound distal left second toe; improved second toe with decrease in erythema and edema; no pus and no bleeding noted on exam ORTHO: contracted toes noted on both feet IMAGING: reviewed LABS: reviewed Results Result Diagram: 10/23/16 0445 10/25/16 0535 JOSEPH KOROMA DPM Oct 27, 2016 01:36
[2016-10-27] MEDS: ACCU-CHEK XX SCH (02:17)
[2016-10-27 03:05] VITALS: BP 133/63; RESP 18
[2016-10-27] MEDS: VANCOMYCIN 1 GM in NS 250 ML IVPB SCH ×2 (03:05→15:33)
[2016-10-27] MEDS: PANTOPRAZOLE (EC) 40 MG TAB PO SCH (05:59)
[2016-10-27] MEDS: HEPARIN 5,000 UNIT/0.5 ML VIAL SC SCH ×3 (06:00→21:47)
[2016-10-27 07:48] LABS: CREATININE 0.81 mg/dl (0.44-1.00)
[2016-10-27] MEDS: INSULIN ASPART [NOVOLOG] 3 ML PEN SC SCH ×6 (08:08→20:28)
[2016-10-27] MEDS: BENAZEPRIL 40 MG TAB PO SCH (08:09)
[2016-10-27] MEDS: METOPROLOL 50 MG TAB PO SCH (08:09)
[2016-10-27] MEDS: LINAGLIPTIN 5 MG TABLET PO SCH (08:09)
[2016-10-27] MEDS: HYDROCHLOROTHIAZIDE 25 MG TAB PO SCH (08:10)
[2016-10-27 08:11] VITALS: BP 162/74; RESP 19
[2016-10-27] MEDS: COLLAGENASE 30 GM TUBE TOP SCH (12:22)
[2016-10-27 14:20] VITALS: BP 131/66; RESP 18
[2016-10-27] MEDS ORDERED: ALTEPLASE (CATHFLO) 2 MG INJ CATHETER ONE (16:00)
[2016-10-27] MEDS: ATORVASTATIN 40 MG TAB PO SCH (20:22)
[2016-10-27] MEDS: INSULIN GLARGINE [LANtus] 3 ML PEN SC SCH (20:23)
[2016-10-27 21:11] VITALS: BP 123/73; RESP 20
[2016-10-28] MEDS: ACCU-CHEK XX SCH (02:00)
[2016-10-28 02:56] VITALS: BP 137/63; PULSE 72
[2016-10-28] MEDS: VANCOMYCIN 1 GM in NS 250 ML IVPB SCH ×2 (03:07→14:31)
[2016-10-28] MEDS: PANTOPRAZOLE (EC) 40 MG TAB PO SCH (05:21)
[2016-10-28] MEDS: HEPARIN 5,000 UNIT/0.5 ML VIAL SC SCH ×2 (05:22→14:32)
[2016-10-28 06:05] LABS: ADD SCAN DIFF NO
[2016-10-28 06:15] LABS: BASOPHIL # 0.1 10^3/ul (0.0-0.1); BASOPHILS % 0.6 % (0.0-2.0); EOSINOPHILS # 0.2 10^3/ul (0.0-0.5); EOSINOPHILS % 1.9 % (0.0-7.0); HEMATOCRIT 34.1 % (37.0-47.0); HEMOGLOBIN 10.9 g/dl (12.0-16.0); LYMPHOCYTES # 2.2 10^3/ul (0.8-2.9); LYMPHOCYTES % 28.4 % (15.0-51.0); MEAN CORPUSCULAR HEMOGLOBIN 28.7 pg (29.0-33.0); MEAN CORPUSCULAR VOLUME 89.7 fl (82.0-101.0); MEAN PLATELET VOLUME 12.1 fl (7.4-10.4); MONOCYTE # 0.7 10^3/ul (0.3-0.9); MONOCYTES % 8.4 % (0.0-11.0); NEUTROPHIL # 4.8 10^3/ul (1.6-7.5); NEUTROPHILS % 60.4 % (39.0-77.0); PLATELET COUNT 240 10^3/UL (140-415); RED CELL DISTRIBUTION WIDTH 13.6 % (11.5-14.5); WHITE BLOOD COUNT 7.9 10^3/ul (4.8-10.8)
[2016-10-28 06:39] LABS: CALCIUM 9.3 mg/dl (8.4-10.2); CREATININE 0.83 mg/dl (0.44-1.00); POTASSIUM 3.7 mmol/L (3.5-5.1)
[2016-10-28 08:05] VITALS: BP 138/64; RESP 18
[2016-10-28] MEDS: INSULIN ASPART [NOVOLOG] 3 ML PEN SC SCH ×4 (08:24→12:35)
[2016-10-28] MEDS ORDERED: METOPROLOL 100 MG TAB PO SCH (09:00)
[2016-10-28] MEDS: LINAGLIPTIN 5 MG TABLET PO SCH (09:51)
[2016-10-28] MEDS: HYDROCHLOROTHIAZIDE 25 MG TAB PO SCH (09:52)
[2016-10-28] MEDS: BENAZEPRIL 40 MG TAB PO SCH (09:53)
[2016-10-28] MEDS: COLLAGENASE 30 GM TUBE TOP SCH (09:57)
--- NOTE | 2016-10-28 15:14 | PN ---
Date/Time of Note Date/Time of Note DATE: 10/28/16 TIME: 15:13 Assessment/Plan VTE Prophylaxis VTE Prophylaxis Intervention: other Lines/Catheters IV Catheter Type (from Nrsg): PICC Line Central line still needed: Yes Urinary Cath still in place: No Reason Cath still needed: other (indicate) Assessment/Plan Chief Complaint/Hosp Course OSTEOMYELITES DM PLAN ANTIBIOTIC PICC LINE PLACEMENT home WAITING FOR HOME HEALTH Problems: Subjective 24 Hr Interval Summary Cardiovascular: no complaints Gastrointestinal: no complaints Exam/Review of Systems Vital Signs Vitals Vital Signs Date Time Temp Pulse Resp B/P Pulse Ox O2 Delivery O2 Flow Rate FiO2 10/28/16 08:05 97.9 77 18 138/64 96 Intake and Output 10/27/16 10/27/16 10/28/16 14:59 22:59 06:59 Intake Total 250 ml 1090 ml Balance 250 ml 1090 ml Exam Respiratory: clear to auscultation Cardiovascular: regular rate and rhythm Musculoskeletal: nl extremities to inspection Extremities: normal pulses Results Result Diagram: 10/28/16 0525 10/28/16 0525 Results 24 hrs Laboratory Tests Test 10/27/16 17:41 10/27/16 20:18 10/28/16 05:25 10/28/16 08:18 Bedside Glucose 138 104 176 White Blood Count 7.9 Red Blood Count 3.80 L Hemoglobin 10.9 L Hematocrit 34.1 L Mean Corpuscular Volume 89.7 Mean Corpuscular Hemoglobin 28.7 L Mean Corpuscular Hemoglobin Concent 32.0 Red Cell Distribution Width 13.6 Platelet Count 240 Mean Platelet Volume 12.1 H Neutrophils % 60.4 Lymphocytes % 28.4 Monocytes % 8.4 Eosinophils % 1.9 Basophils % 0.6 Nucleated Red Blood Cells % 0.0 Neutrophils # 4.8 Lymphocytes # 2.2 Monocytes # 0.7 Eosinophils # 0.2 Basophils # 0.1 Nucleated Red Blood Cells # 0.0 Sodium Level 137 Potassium Level 3.7 Chloride Level 103 Carbon Dioxide Level 29 Anion Gap 9 Blood Urea Nitrogen 21 H Creatinine 0.83 Glucose Level 155 Calcium Level 9.3 Test 10/28/16 12:09 Bedside Glucose 159 Medications Medications Current Medications Heparin Sodium (Porcine) (Heparin (5000 Units/0.5 ml)) 5,000 unit Q8 SC Last administered on 10/28/16t 14:32; Admin Dose 5,000 UNIT; Start 10/19/16 at 22:00 Atorvastatin Calcium (Lipitor) 40 mg QHS PO Last administered on 10/27/16 20:22 ; Admin Dose 40 MG; Start 10/20/16 at 21:00 Benazepril HCl (Lotensin) 40 mg DAILY PO Last administered on 10/28/16 09:53; Admin Dose 40 MG; Start 10/20/16 at 09:00 Hydrochlorothiazide (Hydrochlorothiazide) 25 mg DAILY PO Last administered on 09:52; Admin Dose 25 MG; Start 10/20/16 at 09:00 Miscellaneous Information 1 ea NOTE XX ; Start 10/19/16 at 22:00 Glucose (Glutose) 15 gm Q15M PRN PO DECREASED GLUCOSE; Start 10/19/16 at 22:00 Glucose (Glutose) 22.5 gm Q15M PRN PO DECREASED GLUCOSE; Start 10/19/16 at 22: 00 Dextrose (D50w Syringe) 25 ml Q15M PRN IV DECREASED GLUCOSE; Start 10/19/16 at 22:00 Dextrose (D50w Syringe) 50 ml Q15M PRN IV DECREASED GLUCOSE; Start 10/19/16 at 22:00 Glucagon (Glucagen) 1 mg Q15M PRN IM DECREASED GLUCOSE; Start 10/19/16 at 22:00 Glucose (Glutose) 15 gm Q15M PRN BUCCAL DECREASED GLUCOSE; Start 10/19/16 at 22 :00 Diagnostic Test (Pha) (Accu-Chek) 1 ea 02 XX Last administered on 10/27/16 02: 17; Admin Dose 1 EA; Start 10/20/16 at 02:00 Morphine Sulfate (morphine) 2 mg Q4H PRN IV PAIN; Start 10/20/16 at 01:30 Acetaminophen (Tylenol Tab) 650 mg Q6H PRN PO PAIN AND OR ELEVATED TEMP; Start 10/20/16 at 01:30 Ondansetron HCl (Zofran Inj) 4 mg Q6H PRN IV NAUSEA AND/OR VOMITING; Start 10/20 at 01:30 Pantoprazole (Protonix Tab) 40 mg DAILY@06 PO Last administered on 10/28/16 05: 21; Admin Dose 40 MG; Start 10/21/16 at 06:00 Collagenase (Santyl) 1 applic DAILY TOP Last administered on 10/28/16 09:57; Admin Dose 1 APPLIC; Start 10/21/16 at 09:00 Linagliptin 5 mg 5 mg DAILY PO Last administered on 10/28/16 09:51; Admin Dose 5 MG; Start 10/22/16 at 12:00 Vancomycin HCl (Vancocin) 250 ml @ 125 mls/hr Q12H IVPB Last administered on 14:31; Admin Dose 125 MLS/HR; Start 10/24/16 at 03:00 IV Flush (NS 10 ml) 10 ml PRN PRN IV IV PROTOCOL; Start 10/24/16 at 18:00 Insulin Glargine (Lantus) 25 unit DAILY@20 SC Last administered on 10/27/16 20: 23; Admin Dose 25 UNIT; Start 10/26/16 at 20:00 Metoprolol Tartrate (Lopressor) 100 mg DAILY PO Last administered on 10/28/16 09:54; Admin Dose 100 MG; Start 10/28/16 at 09:00 KYLEE CHEN MD Oct 28, 2016 15:14
[2016-10-28 15:22] VITALS: BP 158/72; RESP 17
[2016-10-28 16:00] VITALS: BP 155/65; PULSE 67; RESP 18
== END 2016-10-28 16:57 | disposition home or self-care (01) | DRG 638 ==
LOC: FTE 17:50 → PP2 21:31
PROVIDERS: ADMIT Internal Medicine Nephrology; ATTEND Internal Medicine Nephrology
PROC: 02HV33Z Insertion of Infusion Device into Superior Vena Cava, Percutaneous Approach (ICD-10-PCS; principal; 2016-10-24)
DX: E11.69 Type 2 diabetes mellitus with other specified complication (principal); M86.172 Other acute osteomyelitis, left ankle and foot; E11.42 Type 2 diabetes mellitus with diabetic polyneuropathy; E11.621 Type 2 diabetes mellitus with foot ulcer; I10 Essential (primary) hypertension; E11.65 Type 2 diabetes mellitus with hyperglycemia; J20.9 Acute bronchitis, unspecified; L97.524 Non-pressure chronic ulcer of other part of left foot with necrosis of bone; Z86.19 Personal history of other infectious and parasitic diseases
CPT/HCPCS: 36415; 36569; 71010; 73718; 76937; 80048; 80053; 80061; 80202; 82565; 82962; 83036; 83735; 84443; 84520; 85025; 85610; 85651; 85730; 86140; 87070; 93922; 96365; 96366; 96375; C9113; J1644; J1815; J2270; J2405; J2543; J2997; J3370; J7030; J7050

== ENCOUNTER 2017-05-27 15:31 | Emergency (ER) | END 2017-05-27 16:59 | disposition home or self-care (01) ==

== ENCOUNTER 2018-01-01 20:46 | Emergency (ER) | END 2018-01-01 23:45 | disposition home or self-care (01) ==

== ENCOUNTER 2018-12-11 19:18 | Emergency (ER) | payer MEDICAID, OTHER ==
[~2018-12-11] VITALS: Ht 160 cm; Wt 83.9 kg
[~2018-12-11 19:18] MED LIST changes: +ACET325T40 PO; -ASPI81TA3 PO; +ATOR40TA68 PO; -BENA40TA41 PO; +BENA40TA56 PO; -BENZ100C70 PO; -CEPH-443 PO; +CLIN300C10 PO; -GLIM2TAB PO; +GLIM4TAB PO; -HYD25 PO; +HYDR25TA6 PO; -IBUP-1542 PO; -IBUP400T22 PO; +IBUP800T48 PO; +LANT3I SC; +LINA5TAB PO; -METF1000 PO; +METF100010 PO; +METO-429 PO; +MTF1000T PO; +MULTI PO; -OSLT75C PO; +SAN30GM TOP; -SIMV40TA3 PO; -SULF1TAB31 PO; +VERA120C2 PO
[2018-12-11 19:22] VITALS: Ht 160 cm; Wt 83.9 kg
[2018-12-11] MEDS ORDERED: NICARDipine HCL 30 MG CAPSULE PO ONE (19:30)
[2018-12-11] MEDS ORDERED: INSULIN LISPRO 100 UNIT/ML VIAL SC ONE (21:30)
[2018-12-11] MEDS ORDERED: SOD CHLORIDE 0.9% 1,000 ML IV ONE (21:30)
[2018-12-11] MEDS ORDERED: ACCU-CHEK XX ONE (23:30)
[2018-12-12 02:00] VITALS: BP 151/76; PULSE 76; RESP 20
== END 2018-12-12 02:25 | disposition home or self-care (01) ==
LOC: E/R 19:18
DX: M25.562 Pain in left knee (principal); E11.65 Type 2 diabetes mellitus with hyperglycemia; I10 Essential (primary) hypertension; Z79.4 Long term (current) use of insulin
CPT/HCPCS: 73562; 80048; 82962; 93971; 96372; J7030; Z7502; Z7610